=== PATIENT | female | born 1950 | race Two or more races ===

== ENCOUNTER 2024-09-17 16:20 | Inpatient (IN) | payer BC, OTHER ==
[~2024-09-17] VITALS: Ht 185.4 cm; Wt 67.9 kg
--- NOTE | 2024-09-17 17:05 | ED.PDOC ---
History of Present Illness(SKN HPI Comments 74y F who presents to the ED for chief complaint of insect bite. Pt states she had bug bite 1 week prior and states the site around the bug bite has been infected and continues to get more swollen with surrounding erythema despite taking outpatient antibiotics. Pt states she has been taking bactrim but states it has not helped and came for further evaluation. Pt in the ED, has noted swelling and edema to the R posterior arm. Pt states she has been having pain radiating to the neck but otherwise denies any associated radiation of the pain. Pt otherwise has stable vitals in the ED. Chief Complaint: Insect Bite Time Seen by MD: 17:01 Primary Care Provider: ? History of Present Illness: Nurses Notes, Medications, Allergies (see list) Allergies: Coded Allergies: Prochlorperazine (Verified Allergy, Unknown, 09/17/24) Information Source: Patient Mode of Arrival: Ambulatory Brought in by: self Severity: Moderate Timing: Days Duration: Since onset Prehospital treatment: None Location: Arm Mechanism: Insect Developed: Generalized erythema, Rash Occurence: Outdoors Object: None Condition of Object: Contaminated Retained Foreign Body: No Wound Type: None Immunization Status of Animal: NA History of: None Associated Signs and Symptoms: Redness, Swelling Past Medical History PAST MEDICAL HISTORY: Denies Surgical History (Other): back surgery x5 [employer] History: Denies all [employer] Hx Family History Family History: Unknown Social History Smoker: Non-Smoker Alcohol: Occasionally Drugs: Denies Drug Use Lives In: Home Constitutional: denies: chills, diaphoresis, fatigue, fever, malaise, sweats, weakness, others EENTM: denies: blurred vision, double vision, ear bleeding, ear discharge, ear drainage, ear pain, ear ringing, eye pain, eye redness, hearing loss, mouth pain, mouth swelling, nasal discharge, nose bleeding, nose congestion, nose pain, photophobia, tearing, throat pain, throat swelling, voice changes, others Respiratory: denies: cough, hemoptysis, orthopnea, SOB at rest, shortness of breath, SOB with excertion, stridor, wheezing, others Cardiovascular: denies: chest pain, dizzy spells, diaphoresis, Dyspnea on exertion, edema, irregular heart beat, left arm pain, lightheadedness, palpitations, PND, syncope, others Gastrointestinal: denies: abdomen distended, abdominal pain, blood streaked bowels, constipated, diarrhea, dysphagia, difficulty swallowing, hematemesis, melena, nausea, poor appetite, poor fluid intake, rectal bleeding, rectal pain, vomiting, others Genitourinary: denies: abnormal vagina bleeding, burning, dyspareunia, dysuria, flank pain, frequency, hematuria, incontinence, pain, , vagina discharg e, urgency, others Neurological: denies: dizziness, fainting, headache, left sided numbness, left sided weakness, numbness, paresthesia, pre-existing deficit, right sided numbness, right sided weakness, seizure, speech problems, tingling, tremors, weakness, others Musculoskeletal: denies: back pain, gout, joint pain, joint swelling, muscle pain, muscle stiffness, neck pain, others Integumetry: reports: change in color (R posterior arm); denies: bruises, change in hair/nails, dryness, laceration, lesions, lumps, rash, wounds, others Allergic/Immunocompromised: denies: Difficulty Healing, Frequent Infections, Hives, Itching, others Hematologic/Lymphatic: denies: anemia, blood clots, easy bleeding, easy bruising, swollen glands, others Endocrine: denies: excessive hunger, excessive sweating, excessive thirst, excessive urination, flushing, intolerance to cold, intolerance to heat, unexplained weight gain, unexplained weight loss, others Psychiatric: denies: anxiety, bipolar disorder, depression, hopeless, panic disorder, schizophrenia, sleepless, suicidal, others All Other Systems: Reviewed and Negative Physical Exam General Appearance: Moderate Distress HEENT: Normal ENT Inspection, Pharynx Normal, TMs Normal Neck: Full Range of Motion, Non-Tender, Normal, Normal Inspection Respiratory: Chest Non-Tender, Lungs Clear, No Accessory Muscle Use, No Re spiratory Distress, Normal Breath Sounds Cardiovascular: No Edema, No JVD, No Murmur, No Gallop, Normal Peripheral Pulses, Regular Rate/Rhythm Breast Exam: Deferred Gastrointestinal: No Organomegaly, Non Tender, No Pulsatile Mass, Normal Bowel Sounds, Soft Genitalia: Deferred Pelvic: Deferred Rectal: Deferred Extremities: No calf tenderness, Normal capillary refill, No pedal edema Musculoskeletal : Apperance: Normal Neurologic: Alert, member service representative II-XII nml as Tested, No Motor Deficits, Normal Affect, Normal Mood, No Sensory Deficits Cerebellar Function: Normal Reflexes: Normal Skin: Dry, Normal Color, Rash (Redness to the right arm with mild drainage), Warm Lymphatic: No Adenopathy Was a procedure done? Was a procedure done?: No Differential Diagnosis (INTG) Differential Diagnosis: Insect Envenomation, Puncture Wound Abscess: Abscess, Bacteremia, Cellulitis X-Ray, Labs, Meds, VS Vital Signs Date Time Temp Pulse Resp B/P (MAP) Pulse Ox O2 Delivery O2 Flow Rate FiO2 09/17/24 17:13 99.4 79 18 135/44 (74) 99 99.4 09/17/24 16:36 99.4 79 18 135/44 (74) 95 Lab Test 09/17/24 17:05 Range/Units White Blood Count 6.2 4.4-10.8 10^3/uL Red Blood Count 4.28 4.0-5.20 10^6/uL Hemoglobin 12.9 12.2-16.2 g/dL Hematocrit 38.1 36.0-46.0 % Mean Corpuscular Volume 89.0 80.0-100.0 fL Mean Corpuscular Hemoglobin 30.1 28.0-32.0 pg Mean Corpuscular Hemoglobin Concent 33.8 32.0-36.0 g/dL Red Cell Distribution Width 13.9 11.8-14.3 % Platelet Count 276 140-450 10^3/uL Mean Platelet Volume 9.8 6.9-10.8 fL Neutrophils (%) (Auto) 64.4 37.0-80.0 % Lymphocytes (%) (Auto) 27.0 10.0-50.0 % Monocytes (%) (Auto) 7.0 0.0-12.0 % Eosinophils (%) (Auto) 0.9 0.0-7.0 % Basophils (%) (Auto) 0.7 0.0-2.0 % Neutrophils # (Auto) 4.0 1.6-8.6 10 ^3/uL Lymphocytes # (Auto) 1.7 0.4-5.4 10 ^3/uL Monocytes # (Auto) 0.4 0-1.3 10 ^3/uL Eosinophils # (Auto) 0.1 0-0.8 10 ^3/uL Basophils # (Auto) 0 0-0.2 10 ^3/uL Nucleated Red Blood Cells 0.1 % Sodium Level 139 136-145 mmol/L Potassium Level 4.2 3.5-5.1 mmol/L Chloride Level 104 98-107 mmol/L Carbon Dioxide Level 25 20-31 mmol/L Anion Gap 10 5-15 Blood Urea Nitrogen 16 9-23 mg/dL Creatinine 1.29 H 0.550-1.02 mg/dL Glomerular Filtration Rate Calc 44 >90 mL/min BUN/Creatinine Ratio 12.4 10.0-20.0 Serum Glucose 158 H 74-106 mg/dL Calcium Level 9.9 8.7-10.4 mg/dL Current Medications Medications (Trade) Dose Ordered Sig/Franky Route Start Time Stop Time Status Last Admin Sodium Chloride 500 ml @ 500 mls/hr Q1H ONCE IV 09/17/24 17:00 09/17/24 17:59 DC 09/17/24 17:15 Clindamycin Phosphate 50 ml @ 50 mls/hr ONCE ONCE IV 09/17/24 17:00 09/17/24 17:59 DC 09/17/24 17:15 The patient was given normal saline as a 500 cc bolus The patient was started on clindamycin IV piggyback The patient's CBC is within normal limits The chemistry panel is within normal limits The patient was being admitted with a diagnosis of right arm cellulitis The patient failed oral antibiotics so needs to be admitted at this time. Time of 1ST Reevaluation: 17:35 Reevaluation 1ST: Unchanged Patient Education/Counseling: Diagnosis, Treatment Family Education/Counseling: No Family Present Departure 1 Departure Time of Disposition: 18:58 Impression: Primary Impression: Cellulitis of right leg Disposition: ADMITTED INPATIENT Admit to: Med Surg Condition: Fair Critical Care Note Critical Care Time?: No Stability Stability form required: No Heart Score Heart Score: Heart Score Response (Comments) Value History N/A 0 EKG N/A 0 Age N/A 0 Risk Factors N/A 0 Troponin N/A 0 Total 0 I personally scribed for LUIS FERNANDO HINTON MD ([email or web address]) on 09/17/24 at 17:04. Electronically submitted by Halley Valdes ([email or web address]). LUIS FERNANDO HINTON MD Sep 17, 2024 17:04
[2024-09-17] MEDS: SODIUM CHLORIDE 0.9% 500 ML IV ONE (17:15)
[2024-09-17] MEDS: CLINDAMYCIN 600MG IV 50 ML IV ONE (17:15)
[2024-09-17 17:25] LABS: Basophils # (auto) 0 10 ^3/uL (0-0.2); Basophils % (auto) 0.7 % (0.0-2.0); Eosinophils # (auto) 0.1 10 ^3/uL (0-0.8); Eosinophils % (auto) 0.9 % (0.0-7.0); Hematocrit 38.1 % (36.0-46.0); Hemoglobin 12.9 g/dL (12.2-16.2); Lymphocytes # (auto) 1.7 10 ^3/uL (0.4-5.4); Mean Corpuscular Hemoglobin 30.1 pg (28.0-32.0); Mean Corpuscular Hgb Conc. 33.8 g/dL (32.0-36.0); Monocytes # (auto) 0.4 10 ^3/uL (0-1.3); Neutrophils % (auto) 64.4 % (37.0-80.0); Nucleated Red Blood Cells % 0.1 %; Platelet Count (auto) 276 10^3/uL (140-450); Red Blood Cells 4.28 10^6/uL (4.0-5.20); Red Cell Distribution Width 13.9 % (11.8-14.3); White Blood Cell 6.2 10^3/uL (4.4-10.8)
[2024-09-17 17:33] LABS: Chloride 104 mmol/L (98-107); Potassium 4.2 mmol/L (3.5-5.1); Sodium 139 mmol/L (136-145)
[2024-09-17 17:34] LABS: Anion Gap 10 (5-15); Carbon Dioxide 25 mmol/L (20-31)
[2024-09-17 17:35] LABS: Calcium 9.9 mg/dL (8.7-10.4)
[2024-09-17 17:39] LABS: BUN/Creatinine Ratio 12.4 (10.0-20.0); Blood Urea Nitrogen 16 mg/dL (9-23); Glucose 158 mg/dL (74-106)
[2024-09-17] MEDS ORDERED: ACETAMINOPHEN 325 MG TAB PO PRN (21:30)
[2024-09-17] MEDS ORDERED: NITROGLYCERIN 0.4 MG SL TAB SL PRN (21:30)
[2024-09-17] MEDS ORDERED: MORPHINE SULFATE INJ 2 MG/ml SYRG IV PRN (21:30)
--- NOTE | 2024-09-17 21:40 | DVHHPRES ---
History of Present Illness Resident Creating Document: [address] RESIDENT History of Present Illness Ms. Tang, a 74-year-old female presented to the ED with a week-old insect bite, fever and chills that had become increasingly swollen and erythematous despite taking Bactrim. She was on a camping trip while she was sleeping , she seemed to have an insect bite of unknown origin. She reported swelling and edema in her right posterior arm, with pain radiating to her neck. She is also concerned with numbness occasionally felt distal to the lesion. Her vitals were stable, and lab results were normal. She was diagnosed with right arm cellulitis, given a saline bolus, and started on IV clindamycin after failing oral antibiotics. She has similar wound infection few years back with a brown recluse spider in the left waist that had a prolonged surgical wound debridement and 3 weeks of IV antibiotics. Patient denies history of diabetes, recent travel, signs and symptoms of other systemic symptoms. Cardiovascular: HTN Psych: Other (Insomnia) Musculoskeletal: Chronic low back pain, Osteoarthritis Dermatology: Other (Previous skin and soft tissue infection secondary to insect bite) Past Surgical History: Hysterectomy, Other (Lower back multiple orthopedic surgery for low back pain secondary to DDD) Family History: None Family History Noncontributory Smoke: Quit (History of 30+ years of 2 pack daily= 60 pack-year history. Patient quit smoking approximately 7 years back. Reported up-to-date with cancer screening,) ALCOHOL: occassional (Social) Drugs: None Lives: with Family Domestic Violence: Neg Review of Systems Constitutional: Yes: Fever, Chills, Malaise Eyes: No: Pain, Vision change, Conjunctivae inflammation, Eyelid inflammation, Other, Redness ENT: No: Ear pain, Ear discharge, Nose pain, Nose discharge, Nose congestion, Mouth pain, Mouth swelling, Throat pain, Throat swelling, Other Respiratory: No: Cough, Dry, Shortness of breath, SOB with excertion, Wheezing, Hemoptysis, Pleuritic Pain, Sputum, Wheezing, Other Cardiovascular: No: Chest Pain, Palpitations, Orthopnea, Paroxysmal Noc. Dyspnea, Edema, Lt Headedness, Other Gastrointestinal: No: Nausea, Vomiting, Abdominal Pain, Diarrhea, Constipation, Melena, Hematochezia, Other Genitourinary: No Dysuria, No Frequency, No Incontinence, No Hematuria, No Retention, No Other Musculoskeletal: other (Numbness weakness, occasional intermittent paresthesias in the right upper extremity), shoulder pain, arm pain Skin: Rash, Lesions (Worsening skin redness and swelling) Neurological: No: Weakness, Numbness, Incoordination, Change in speech, Confusion, Seizures, Other Allergies: Coded Allergies: Prochlorperazine (Verified Allergy, Unknown, 09/17/24) Medications Current Medications Medications Dose Ordered Sig/Franky Route Start Time Stop Time Status Last Admin Dose Admin Acetaminophen/ Hydrocodone Bitart 1 tab Q4HP PRN PO 09/17/24 21:30 Ondansetron HCl 4 mg Q4HP PRN IV 09/17/24 21:30 Docusate Sodium 100 mg BIDPRN PRN PO 09/17/24 21:30 Acetaminophen 650 mg Q6HP PRN PO 09/17/24 21:30 Morphine Sulfate 2 mg Q4HPRN PRN IV 09/17/24 21:30 Nitroglycerin 0.4 mg Q5MINP PRN SL 09/17/24 21:30 Morphine Sulfate 2 mg Q30M PRN IV 09/17/24 21:30 Exam Vital Signs Vital Signs Date Time Temp Pulse Resp B/P (MAP) Pulse Ox O2 Delivery O2 Flow Rate FiO2 09/17/24 17:13 99.4 79 18 135/44 (74) 99 99.4 Exam Physical examination conducted with the presence of female cast shell grinder at bedside. Right upper arm noted swelling with local tenderness around and on the lesion. No active discharge noted. Detailed review of the distal part of the arm shows sustained perfusion, neurological function and no signs of compartment syndrome. Although possible to have local nerve sheath compression/him involvement. General Appearance: Alert, Oriented X3, Cooperative, mild distress HEENT: Atraumatic, PERRLA, EOMI, Mucous membr. moist/pink Respiratory: Clear to auscultation, Normal air movement Cardiovascular: Regular rate, Normal S1, Normal S2, No murmurs Abdominal: Normal bowel sounds, Soft, No tenderness, No hepatospenomegaly, No masses, Other (BS positive) Extremities: Other (Right upper extremity midway between acromio clavicular process and olecranon process towards the extensor compartment of arm laterally approximately raised, granulated, red, angry swollen oval masslike projection 2.5fwwky2 inch with fluctuation underneath pointing towards likely pus colle ction) Neuro: Normal gait, Normal speech, Strength at 5/5 X4 ext, Normal tone, Cranial nerves 3-12 NL Psych/Mental Status: Mental status NL, Mood NL Labs/Xrays Labs Test 09/17/24 17:05 Range/Units White Blood Count 6.2 4.4-10.8 10^3/uL Red Blood Count 4.28 4.0-5.20 10^6/uL Hemoglobin 12.9 12.2-16.2 g/dL Hematocrit 38.1 36.0-46.0 % Mean Corpuscular Volume 89.0 80.0-100.0 fL Mean Corpuscular Hemoglobin 30.1 28.0-32.0 pg Mean Corpuscular Hemoglobin Concent 33.8 32.0-36.0 g/dL Red Cell Distribution Width 13.9 11.8-14.3 % Platelet Count 276 140-450 10^3/uL Mean Platelet Volume 9.8 6.9-10.8 fL Neutrophils (%) (Auto) 64.4 37.0-80.0 % Lymphocytes (%) (Auto) 27.0 10.0-50.0 % Monocytes (%) (Auto) 7.0 0.0-12.0 % Eosinophils (%) (Auto) 0.9 0.0-7.0 % Basophils (%) (Auto) 0.7 0.0-2.0 % Neutrophils # (Auto) 4.0 1.6-8.6 10 ^3/uL Lymphocytes # (Auto) 1.7 0.4-5.4 10 ^3/uL Monocytes # (Auto) 0.4 0-1.3 10 ^3/uL Eosinophils # (Auto) 0.1 0-0.8 10 ^3/uL Basophils # (Auto) 0 0-0.2 10 ^3/uL Nucleated Red Blood Cells 0.1 % Sodium Level 139 136-145 mmol/L Potassium Level 4.2 3.5-5.1 mmol/L Chloride Level 104 98-107 mmol/L Carbon Dioxide Level 25 20-31 mmol/L Anion Gap 10 5-15 Blood Urea Nitrogen 16 9-23 mg/dL Creatinine 1.29 H 0.550-1.02 mg/dL Glomerular Filtration Rate Calc 44 >90 mL/min BUN/Creatinine Ratio 12.4 10.0-20.0 Serum Glucose 158 H 74-106 mg/dL Calcium Level 9.9 8.7-10.4 mg/dL Assessment/Plan Assessment/Plan Assessment: A 74-year-old female, presented to the ED with a week-old insect bite that had become swollen and erythematous despite taking Bactrim, and was diagnosed with right arm cellulitis, receiving IV clindamycin after failing oral antibiotics. Admitted in [facility], started on IV antibiotics with further workup and planning of surgical management. Plan: #1 Insect bite: approximately a week back, insect not visualized. Progressive granulation tissue, local pain, numbness, tingling, referred pain to the proximal shoulder blade and distal arm, forearm and fingers. Noted fever 101 at home with recurrent chills. Worsening of infection despite having oral Bactrim. #2 Skin and soft tissue infection with likely underlying abscess: Continue IV antibiotics, patient kept NPO, tomorrow we will do surgical consult likely will benefit from drainage. Pain controlled with as needed multimodal pain management. clinically ruled out and Discussed red flag/ compartment syndrome with the patient. Wound culture, blood culture pending. rule out DVT with ultrasound and localize collection. #3 Essential hypertension: At home patient takes metformin succinate 25 mg daily. #4 Past history of brown recluse spider bite: few years back needing 3 weeks of prolonged hospitalization, recurrent wound debridement/drainage with prolonged IV antibiotics in the right waist area. treatment details limited as the patient obtained the care [place]. #5 Insomnia: Bedtime Seroquel 50 mg daily. Previously she has also tried trazodone 50 mg, zolpidem 5 mg for insomnia. #6 Vitamin-D deficiency: On vitamin D supplements continue in-hospital. Check vitamin-D levels. #7 MARY due to VMN: No known baseline, creatinine mildly elevated presented with 1.29, 1.25 with fluid challenge. Avoid nephrotoxic check I&O and close follow up. #8 Possible CKD: No known baseline, daily CBC to follow. #9 Known allergy to Prochlorperazine: With generalized erythema and rash. Avoid the medication. #10 prolonged history of previous 60 pack-year smoking: Patient denies any unintentional weight loss, she is updated with colonoscopy and low-dose CT with her PCP. #11 History of degenerative joint /disc disease: status post lower back surgery: previous history of back pain with prolonged history of fentanyl controlled pain. Status post 5x surgical management, pain well-controlled. Denies any present stiffness pain or neurological symptoms. #12 Osteoarthritis: overall patient is mobile, no severe joint tenderness noted, no recent fall. PUD prophylaxis: not needed, no history of GERD DVT prophylaxis: Ambulatory/ encouraged brisk movement. Barriers to discharge: Medical diagnosis and management in progress. Patient lives with self family. Independent for ADL. PCP: Dr Delfin Davila Specialist: As per patient yet to establish care with results technician for stress test and blood pressure control. Case discussed with Dr. Izquierdo. Code Status: Full Code. Discussion needed total 25 minutes bedside. Plan discussed with: Patient, Other (Primary team, RN.) My Orders Orders - [facility] [address] RESIDENT Procedure Category Date Status Time Admit ADMIT 09/17/24 Transmitted 21:27 Code Status CODE 09/17/24 Transmitted 21:27 Oxygen Per Hour RT 09/17/24 Transmitted 21:27 Hydrocodone-Acet PHA 09/17/24 In Process 5/325mg Tab ([place] 21:30 Ondansetron Hcl PHA 09/17/24 In Process (Zofran) 21:30 Docusate Sodium PHA 09/17/24 In Process Capsule (Colace 21:30 Complete Blood Count LAB 09/18/24 Verified 04:00 Comprehensive LAB 09/18/24 Verified Metabolic Panel 04:00 Npo (Nothing By DIET 09/18/24 Transmitted Mouth) Diet Breakfast Condition: Fair NATHALIE 09/17/24 In Process 21:27 Acetaminophen Tablet PHA 09/17/24 In Process (Tylenol Tablet) 21:30 Bedrest With Bathroom NATHALIE 09/17/24 In Process Privileg 21:27 Morphine Sulfate PHA 09/17/24 In Process Injection 21:30 Nitroglycerin PHA 09/17/24 In Process Sublingual (Ntrostat 21:30 Morphine Sulfate PHA 09/17/24 In Process Injection 21:30 Oxygen By Nasal RT 09/17/24 Transmitted Cannula 21:27 Stat Ekg For Chest NATHALIE 09/17/24 In Process Pain 21:27 Notify Md Of Changes NATHALIE 09/17/24 In Process From Base 21:27 Emergency Dysrhythmia NATHLAIE 09/17/24 In Process Protocol 21:27 Rhythm Strips Once NATHALIE 09/17/24 In Process Every Shift 21:27 Comprehensive LAB 09/17/24 Logged Metabolic Panel 21:30 Thyroid Stimulating LAB 09/17/24 Logged Hormone 21:30 Blood Culture GUILLERMO 09/17/24 Logged 21:30 Bilat Lower Dvt US 09/17/24 Logged 21:31 Urinalysis LAB 09/17/24 Logged 21:31 Lactated Ringer's PHA 09/17/24 In Process 21:45 D-Dimer LAB 09/17/24 Logged 21:37 Date of Service: Sep 17, 2024 Billing Provider: ERICK IZQUIERDO MD Common Visit Codes: [id number] INP/OBS CARE (HIGH) [address] RESIDENT Sep 17, 2024 21:40 ERICK IZQUIERDO MD Sep 18, 2024 17:54
[2024-09-17 22:19] LABS: Alanine Aminotransferase 10 U/L (7-40); Alkaline Phosphatase 96 U/L (46-116); Anion Gap 9 (5-15); Aspartate Aminotransferase 11 U/L (13-40); BUN/Creatinine Ratio 13.6 (10.0-20.0); Blood Urea Nitrogen 17 mg/dL (9-23); Calcium 9.6 mg/dL (8.7-10.4); Carbon Dioxide 25 mmol/L (20-31); Chloride 105 mmol/L (98-107); Glucose 91 mg/dL (74-106); Potassium 4.4 mmol/L (3.5-5.1); Sodium 139 mmol/L (136-145)
[2024-09-17 22:20] LABS: Albumin 4.3 g/dL (3.2-4.8); Bilirubin, Total 0.4 mg/dL (0.2-1.0); Total Protein 6.7 g/dL (5.7-8.2)
[2024-09-17] MEDS: LACTATED RINGER'S 1,000 ML IV ONE (22:34)
[2024-09-17] MEDS ORDERED: VANCOMYCIN PER PHARMACY 0 MG IV SCH (23:15)
[2024-09-18 00:05] LABS: Erythrocyte Sedimentation Rate 16 mm/hr (0-20)
--- NOTE | 2024-09-18 04:13 | DVH ---
Right lower extremity venous duplex Clinical History: INFECTION Comparison: None Technique: Duplex Doppler evaluation of the deep venous system of the right upper extremity from the common femo ral vein to the popliteal vein including color Doppler and spectral/pulsed waveform analysis was perf ormed. Findings: The internal jugular, subclavian, axillary, cephalic, brachial, basilic, radial and ulnar veins demon strate normal compressibility and patency. Incidental note of 2.2 x 1.6 x 1.4 cm complex fluid collection with skin edema at area of erythema an d pain. Impression: 1. No evidence of right upper extremity DVT 2. 2.2 cm complex fluid collection with edema and erythema along the posterior arm may represent cell ulitis with focal abscess. Correlation with clinical exam is recommended. HS:Y
[2024-09-18 04:45] VITALS: PULSE 60; RESP 16; O2SAT 99
[2024-09-18] MEDS: HYDROcodone-ACET 5/325MG TAB PO PRN (04:50)
[2024-09-18] MEDS: VANCOMYCIN 1GM/250ML KIT 200 ML IV ONE (04:50)
[2024-09-18 06:14] LABS: Chloride 105 mmol/L (98-107); Potassium 4.2 mmol/L (3.5-5.1); Sodium 139 mmol/L (136-145)
[2024-09-18 06:15] LABS: Anion Gap 9 (5-15); Calcium 9.9 mg/dL (8.7-10.4); Carbon Dioxide 25 mmol/L (20-31)
[2024-09-18 06:20] LABS: BUN/Creatinine Ratio 12.8 (10.0-20.0); Blood Urea Nitrogen 15 mg/dL (9-23); Glucose 93 mg/dL (74-106)
[2024-09-18 06:26] LABS: Basophils # (auto) 0.1 10 ^3/uL (0-0.2); Basophils % (auto) 0.9 % (0.0-2.0); Eosinophils # (auto) 0.1 10 ^3/uL (0-0.8); Eosinophils % (auto) 1.4 % (0.0-7.0); Hematocrit 36.9 % (36.0-46.0); Hemoglobin 12.8 g/dL (12.2-16.2); Lymphocytes # (auto) 1.3 10 ^3/uL (0.4-5.4); Lymphocytes % (auto) 21.9 % (10.0-50.0); Mean Corpuscular Hemoglobin 30.6 pg (28.0-32.0); Mean Corpuscular Hgb Conc. 34.8 g/dL (32.0-36.0); Monocytes # (auto) 0.4 10 ^3/uL (0-1.3); Neutrophils # (auto) 4.2 10 ^3/uL (1.6-8.6); Neutrophils % (auto) 68.8 % (37.0-80.0); Nucleated Red Blood Cells % 0.1 %; Platelet Count (auto) 273 10^3/uL (140-450); Red Blood Cells 4.19 10^6/uL (4.0-5.20); Red Cell Distribution Width 13.4 % (11.8-14.3); White Blood Cell 6.1 10^3/uL (4.4-10.8)
[2024-09-18 07:19] VITALS: PULSE 58; RESP 11; O2SAT 96
[2024-09-18 07:46] LABS: Urine Bacteria None Seen /hpf (None Seen); Urine WBC None Seen /hpf (0 - 5)
[2024-09-18 08:07] LABS: Amphetamine Screen, Urine Neg (NEGATIVE); Barbiturate Scree,Urine Neg (NEGATIVE); Benzodiazephine Screen, Urine Neg (NEGATIVE); Cannabinoid Screen, Urine Pos (NEGATIVE); Cocaine Screen, Urine Neg (NEGATIVE); Opiate Scree,Urine Neg (NEGATIVE); Phencyclidine Screen, Urine Neg (NEGATIVE)
[2024-09-18 08:09] LABS: Urine Blood Negative /uL (Negative); Urine Clarity Clear (Clear); Urine Color Light-Yellow (Yellow); Urine Protein, UAD Negative (Negative); Urine Specific Gravity 1.016 (1.001-1.035); Urine Urobilinogen Normal (Negative)
[2024-09-18] MEDS: ONDANSETRON HCL 4 MG/2 ML VIAL IV PRN (08:38)
[2024-09-18] MEDS: ERGOCALCIFEROL 50,000 UNIT(1.25MG) CAP PO SCH (08:38)
[2024-09-18] MEDS: MORPHINE SULFATE INJ 2 MG/ml SYRG IV PRN (08:39)
[2024-09-18 09:44] VITALS: PULSE 63; RESP 20; O2SAT 95
--- NOTE | 2024-09-18 10:41 | DVHINCON2 ---
Date of service: Sep 18, 2024 Reason for Consultation right arm abscess History of Present Illness History Source: Patient, RN Notes, MD Notes Exam Limitations: No limitations HPI 74 year old female presented to the ER for evaluation of an insect bite a week ago. She was camping and while asleep she woke up with a bite to her right arm. She states the area has become become worse in pain and size. She was treated with antibiotics and has had no improvement. Past Medical History Cardiac: HTN Pulmonary: Asthma Central Nervous System: Nervous system GI: Constipation Hemotology/Oncology: Anemia NOS Hepatobiliary: Cirrhosis Musculoskeletal: Chronic low back pain, Osteoarthritis Rheumotologic: Fibromyalgia Infectious Disease: AIDS ENT: Sinusitis Renal/: Acute renal failure Endocrine: Vit D deficiency Dermatology: Eczema Past Surgical History: Hysterctomy Smoker: No Hx (Negative) Drugs: None Review of Systems Constitutional: No symptom reported Ears, Nose, & Throat: No symptom reported Eyes: No symptom reported Pulmonary/Respiratory: No symptom reported Cardiovascular: No symptom reported Gastrointestinal: No symptom reported Genitourinary: No symptom reported Musculoskeletal: No symptom reported Skin: Other (right arm abscess) Psychiatric: No symptom reported Endocrine: No symptom reported Hemotologic/Lymphatic: No symptom reported H&P Exam Vital Signs Vital Signs Date Time Temp Pulse Resp B/P (MAP) Pulse Ox O2 Delivery O2 Flow Rate FiO2 09/18/24 09:44 63 20 95 Room Air* 0 21 09/18/24 09:40 98.2 124/53 (76) 98.2 General Appeara: Well developed, Well nourished, Normal Appearance Neuro/Mental St: Alert, Oriented, Depressed affect Eye contact/ Speech: Cooperative, Good eye contact, Normal speech Thoughts/Psych: Normal thought pattern Skin Exam: Other (right arm abscess) Wounds right arm abscess Labs/Xrays Labs Test 09/18/24 05:40 09/18/24 05:22 09/17/24 23:43 09/17/24 21:43 Range/Units Urine Color Light-yellow Yellow Urine Clarity Clear Clear Urine pH 6.0 5.0-9.0 Urine Specific Stuart 1.016 1.001-1.035 Urine Protein Negative Negative Urine Ketones 1+ H Negative Urine Blood Negative Negative /uL Urine Nitrite Negative Negative Urine Bilirubin Negative Negative Urine Urobilinogen Normal Negative mg/dL Urine Leukocyte Esterase Negative Negative /uL Urine RBC 1 0 - 4 /hpf Urine WBC None seen 0 - 5 /hpf Urine Squamous Epithelial Cells None seen <5 /hpf Urine Bacteria None seen None Seen /hpf Urine Glucose Normal Normal mg/dL Urine Opiates Screen Neg NEGATIVE Urine Fentanyl Screen Neg NEGATIVE Urine Barbiturates Screen Neg NEGATIVE Urine Phencyclidine Screen Neg NEGATIVE Urine Amphetamines Screen Neg NEGATIVE Urine Benzodiazepines Screen Neg NEGATIVE Urine Cocaine Screen Neg NEGATIVE Urine Cannabinoids Screen Pos NEGATIVE White Blood Count 6.1 4.4-10.8 10^3/uL Red Blood Count 4.19 4.0-5.20 10^6/uL Hemoglobin 12.8 12.2-16.2 g/dL Hematocrit 36.9 36.0-46.0 % Mean Corpuscular Volume 88.0 80.0-100.0 fL Mean Corpuscular Hemoglobin 30.6 28.0-32.0 pg Mean Corpuscular Hemoglobin Concent 34.8 32.0-36.0 g/dL Red Cell Distribution Width 13.4 11.8-14.3 % Platelet Count 273 140-450 10^3/uL Mean Platelet Volume 9.9 6.9-10.8 fL Neutrophils (%) (Auto) 68.8 37.0-80.0 % Lymphocytes (%) (Auto) 21.9 10.0-50.0 % Monocytes (%) (Auto) 7.0 0.0-12.0 % Eosinophils (%) (Auto) 1.4 0.0-7.0 % Basophils (%) (Auto) 0.9 0.0-2.0 % Neutrophils # (Auto) 4.2 1.6-8.6 10 ^3/uL Lymphocytes # (Auto) 1.3 0.4-5.4 10 ^3/uL Monocytes # (Auto) 0.4 0-1.3 10 ^3/uL Eosinophils # (Auto) 0.1 0-0.8 10 ^3/uL Basophils # (Auto) 0.1 0-0.2 10 ^3/uL Nucleated Red Blood Cells 0.1 % Sodium Level 139 136-145 mmol/L Potassium Level 4.2 3.5-5.1 mmol/L Chloride Level 105 98-107 mmol/L Carbon Dioxide Level 25 20-31 mmol/L Anion Gap 9 5-15 Blood Urea Nitrogen 15 9-23 mg/dL Creatinine 1.17 H 0.550-1.02 mg/dL Glomerular Filtration Rate Calc 50 >90 mL/min BUN/Creatinine Ratio 12.8 10.0-20.0 Serum Glucose 93 74-106 mg/dL Calcium Level 9.9 8.7-10.4 mg/dL Creatine Kinase 85 34-145 U/L Lactic Acid Level 0.9 0.4-2.0 mmol/L Erythrocyte Sedimentation Rate 16 0-20 mm/hr D-Dimer, Quantitative 0.47 0.0-0.49 mg/L FEU Hemoglobin A1c 5.2 <5.7 % A1C Total Bilirubin 0.4 0.2-1.0 mg/dL Aspartate Amino Transferase (AST) 11 L 13-40 U/L Alanine Aminotransferase (ALT) 10 7-40 U/L Alkaline Phosphatase 96 46-116 U/L C-Reactive Protein High Sensitivity 0.91 <1.0 mg/dL Total Protein 6.7 5.7-8.2 g/dL Albumin 4.3 3.2-4.8 g/dL Thyroid Stimulating Hormone (TSH) 1.88 0.55-4.78 uIU/mL Assessment/Plan Plan right arm abscess , tender, incision and drainage tomorrow Plan discussed with: Patient, Other Visit Coding Surgery Date of Service if different f: Sep 18, 2024 Billing Provider: DARYN SINGH MD Surgery Visit Codes: 05184 - INP CONSULT <55 MIN DANILO COLIN NP Sep 18, 2024 10:40
--- NOTE | 2024-09-18 11:22 | DVHSR ---
APPROVED REPORT EXAM: Two-dimensional and M-mode echocardiogram with Doppler and color Doppler. Blood Pressure: 124/52 mmHg INDICATION Pre-Op pre surgical risk assessment known for HTN RISK FACTORS Height: 63, Weight: 133 DIMENSIONS LVDd4.1 (3.8-5.7cm)LA (2D)3.7 (1.9-4.0cm)Aortic Root2.8 (2.0-3.7cm) LVDs2.7 (2.5-4.0cm)LA (MM) (1.9-4.0cm)Aortic Cusp Exc1.6 (1.5-2.0cm) EF (%) 65.0 (55-70%)Rt. Atrium (1.9-4.0cm)Asc. Aorta cm IVSd0.9 (0.7-1.1cm)RV (D) (1.8-2.4cm) PWd1.1 (0.7-1.1cm) Mitral Valve MitralMitral Stenosis E wave1.29m/sMV Mean GR.mmHg A wave1.24m/sMV Peak GR.mmHg E/A ratio1.02D MVAcm2 DECEL [id number] 1/2 [id number] IVRTmsDop MVA2.04cm2 Aortic Valve Aortic ValveAortic Stenosis V11.00m/Julia Mean GR.6mmHg V21.74m/Julia Peak GR.12mmHg Other Information Technically limited study due to body habitus and patient position. Conclusion Normal left ventricular size and dimension. Normal left ventricular systolic function estimated ejec tion fraction 55%. There is a grade 2 diastolic dysfunction. Normal right ventricular size and dimension. Normal right ventricular systolic function. Normal biatrial size and dimension. Normal aortic valve structure and function. Normal mitral valve structure and function. Normal tricuspid valve structure and function. The pulmonary valve is grossly normal. No pericardial effusion.
[2024-09-18] MEDS: LACTATED RINGER'S 1,000 ML IV SCH (11:27)
--- NOTE | 2024-09-18 14:58 | DVHPNRES ---
Progress Note Date Seen: Sep 18, 2024 Resident Creating Document: THAD NICOLE RESIDENT Has the PT tested + for MRSA If YES, has PT been informed?: No Medical Necessity Reason Pt with a Central, PICC or Fol: No Subjective Review of Systems A 74-year-old female, presented to the ED with a week-old insect bite that had become swollen and erythematous despite taking Bactrim, and was diagnosed with right arm cellulitis, receiving IV clindamycin after failing oral antibiotics. Admitted in medsurgery, started on IV antibiotics with further workup and planning of surgical management. Objective vital signs Vital Sign Date Time Temp Pulse Resp B/P (MAP) Pulse Ox O2 Delivery O2 Flow Rate FiO2 09/18/24 14:00 67 13 106/39 (61) 97 09/18/24 09:44 Room Air* 0 21 09/18/24 09:40 98.2 98.2 Total Intake and Output 09/17/24 09/17/24 09/18/24 15:00 23:00 07:00 Intake Total 200 ml Balance 200 ml medications Current Medications Medications Dose Ordered Sig/Franky Route Start Time Stop Time Status Last Admin Dose Admin Acetaminophen/ Hydrocodone Bitart 1 tab Q4HP PRN PO 09/17/24 21:30 09/18/24 12:51 1 TAB Ondansetron HCl 4 mg Q4HP PRN IV 09/17/24 21:30 09/18/24 08:38 4 MG Docusate Sodium 100 mg BIDPRN PRN PO 09/17/24 21:30 Acetaminophen 650 mg Q6HP PRN PO 09/17/24 21:30 Morphine Sulfate 2 mg Q4HPRN PRN IV 09/17/24 21:30 09/18/24 08:39 2 MG Nitroglycerin 0.4 mg Q5MINP PRN SL 09/17/24 21:30 Morphine Sulfate 2 mg Q30M PRN IV 09/17/24 21:30 Vancomycin HCl 0 ml @ 0 mls/hr UD IV 09/17/24 23:15 Quetiapine Fumarate 50 mg HS PO 09/18/24 22:00 Ergocalciferol 50,000 unit Q7D PO 09/18/24 10:00 09/18/24 08:38 50,000 UNIT Vancomycin HCl 100 ml @ 200 mls/hr Q12H IV 09/18/24 17:00 Lactated Ringer's 1,000 ml @ 100 mls/hr Q10H IV 09/18/24 11:00 09/18/24 11:27 100 MLS/HR Examination General Appearance: Alert, Oriented X3, Cooperative, mild distress HEENT: Atraumatic, PERRLA, EOMI, Mucous membr. moist/pink Respiratory: Clear to auscultation, Normal air movement Cardiovascular: Regular rate, Normal S1, Normal S2, No murmurs Abdominal: Normal bowel sounds, Soft, No tenderness, No hepatospenomegaly, No masses, Other (BS positive) Extremities: Right upper extremity midway between acromio clavicular process and olecranon process towards the extensor compartment of arm laterally approximately raised, granulated, red, angry swollen oval masslike projection 2.8uaobj1 inch with fluctuation underneath pointing towards likely pus collection Neuro: Normal gait, Normal speech, Strength at 5/5 X4 ext, Normal tone, Cranial nerves 3-12 NL Psych/Mental Status: Mental status NL, Mood NL laboratory and microbiology Laboratory Tests 09/18/24 05:22 Test 09/18/24 05:22 Range/Units Serum Glucose 93 74-106 mg/dL Problem List/Assessment/Plan Problem List/Assessment/Plan #Skin and soft tissue infection with likely underlying abscess due to Insect bite Approximately a week back, insect not visualized. Progressive granulation tissue, local pain, numbness, tingling, referred pain to the proximal shoulder blade and distal arm, forearm and fingers. Noted fever 101 at home with recurrent chills. Worsening of infection despite having oral Bactrim. Surgery will do drainage tomorrow Continue IV AB: vancomycin and clindamycin Wound culture, blood culture pending. #Essential hypertension: Metoprolol succinate 25 mg at home Hold on for now #Past history of brown recluse spider bite #MARY due to VMN: No known baseline, creatinine improving with fluids Case discussed with Dr. Cassidy Code Status: Full Code. Discussion needed total 25 minutes bedside. Plan discussed with: Patient, Other (rn) Date of Service: Sep 18, 2024 Billing Provider: PIEDAD CASSIDY MD Common Visit Codes: [id number] INP/OBS CARE(HIGH) THAD NICOLE RESIDENT Sep 18, 2024 14:58 PIEDAD CASSIDY MD Sep 20, 2024 08:09
[2024-09-18] MEDS: VANCOMYCIN 500mg/100mL 100 ML IV SCH (18:57)
[2024-09-18] MEDS ORDERED: CLINDAMYCIN 300MG IV 50 ML IV SCH (22:00)
[2024-09-18] MEDS: QUEtiapine FUMARATE 25 MG TAB PO SCH (22:18)
[2024-09-19] VITALS (8 sets, daily range): BP systolic 120–155; BP diastolic 49–68; PULSE 63–87; RESP 17–20; TEMP 97.9–98.4; O2SAT 95–100
[2024-09-19] MEDS ORDERED: CHOL20007 PO (04:31)
[2024-09-19] MEDS ORDERED: METO25TA93 PO (04:31)
[2024-09-19] MEDS ORDERED: QUET50TA PO (04:31)
--- NOTE | 2024-09-19 07:03 | DVHPNRES ---
Progress Note Date Seen: Sep 19, 2024 Resident Creating Document: THAD NICOLE RESIDENT Has the PT tested + for MRSA If YES, has PT been informed?: No Medical Necessity Reason Pt with a Central, PICC or Fol: No Subjective Review of Systems A 74-year-old female, presented to the ED with a week-old insect bite that had become swollen and erythematous despite taking Bactrim, and was diagnosed with right arm cellulitis, receiving IV clindamycin after failing oral antibiotics. Admitted in medsurgery, started on IV antibiotics with further workup and planning of surgical management. Objective vital signs Vital Sign Date Time Temp Pulse Resp B/P (MAP) Pulse Ox O2 Delivery O2 Flow Rate FiO2 09/19/24 05:00 97.9 64 18 132/51 (78) 97 97.9 09/19/24 03:37 Room Air* 0 21 Total Intake and Output 09/18/24 09/18/24 09/19/24 15:00 23:00 07:00 Intake Total 400 ml 700 ml 100 ml Balance 400 ml 700 ml 100 ml medications Current Medications Medications Dose Ordered Sig/Franky Route Start Time Stop Time Status Last Admin Dose Admin Acetaminophen/ Hydrocodone Bitart 1 tab Q4HP PRN PO 09/17/24 21:30 09/18/24 18:51 1 TAB Ondansetron HCl 4 mg Q4HP PRN IV 09/17/24 21:30 09/18/24 08:38 4 MG Docusate Sodium 100 mg BIDPRN PRN PO 09/17/24 21:30 Acetaminophen 650 mg Q6HP PRN PO 09/17/24 21:30 Morphine Sulfate 2 mg Q4HPRN PRN IV 09/17/24 21:30 09/19/24 02:15 2 MG Nitroglycerin 0.4 mg Q5MINP PRN SL 09/17/24 21:30 Morphine Sulfate 2 mg Q30M PRN IV 09/17/24 21:30 Vancomycin HCl 0 ml @ 0 mls/hr UD IV 09/17/24 23:15 Quetiapine Fumarate 50 mg HS PO 09/18/24 22:00 09/18/24 22:18 50 MG Ergocalciferol 50,000 unit Q7D PO 09/18/24 10:00 09/18/24 08:38 50,000 UNIT Vancomycin HCl 100 ml @ 200 mls/hr Q12H IV 09/18/24 17:00 09/19/24 05:25 200 MLS/HR Lactated Ringer's 1,000 ml @ 100 mls/hr Q10H IV 09/18/24 11:00 09/18/24 11:27 100 MLS/HR Examination General Appearance: Alert, Oriented X3, Cooperative, mild distress HEENT: Atraumatic, PERRLA, EOMI, Mucous membr. moist/pink Respiratory: Clear to auscultation, Normal air movement Cardiovascular: Regular rate, Normal S1, Normal S2, No murmurs Abdominal: Normal bowel sounds, Soft, No tenderness, No hepatospenomegaly, No masses, Other (BS positive) Extremities: Right upper extremity midway between acromio clavicular process and olecranon process towards the extensor compartment of arm laterally approximately raised, granulated, red, angry swollen oval masslike projection 2.6zclzu4 inch with fluctuation underneath pointing towards likely pus collection Neuro: Normal gait, Normal speech, Strength at 5/5 X4 ext, Normal tone, Cranial nerves 3-12 NL Psych/Mental Status: Mental status NL, Mood NL laboratory and microbiology Laboratory Tests 09/18/24 05:22 Test 09/18/24 05:22 Range/Units Serum Glucose 93 74-106 mg/dL Microbiology Date/Time Source Procedure Growth Status 09/17/24 21:43 Blood Blood Culture - Preliminary NO GROWTH AFTER 24 HOURS OF INCUBATION. Resulted Problem List/Assessment/Plan Problem List/Assessment/Plan #Skin and soft tissue infection with likely underlying abscess due to Insect bite #s/p drainage Approximately a week back, insect not visualized. Progressive granulation tissue, local pain, numbness, tingling, referred pain to the proximal shoulder blade and distal arm, forearm and fingers. Noted fever 101 at home with recurrent chills. Worsening of infection despite having oral Bactrim. Surgery will do drainage tomorrow Continue IV AB: vancomycin Wound culture pending blood culture prelim neg Drainage yesterday: An incision was made and purulent drainage drained from the wound the drainage was cultured and sent. The area was than infiltrated to exice necrotic tissue. The wound was than pulse lavaged and than packed with iodoform packing. Dressings were applied and patient was transferred to recovery. Sponge , needle and blade counts were correct. #Essential hypertension: Metoprolol succinate 25 mg at home Hold on for now #Past history of brown recluse spider bite #MARY due to VMN: No known baseline, creatinine improving with fluids Case discussed with Dr. Cassidy Code Status: Full Code. Discussion needed total 25 minutes bedside. Plan discussed with: Patient, Other (rn) Date of Service: Sep 20, 2024 Billing Provider: PIEDAD CASSIDY MD Common Visit Codes: [id number] INP/OBS CARE(HIGH) THAD NICOLE RESIDENT Sep 19, 2024 07:03 PIEDAD CASSIDY MD Sep 20, 2024 08:09
[2024-09-19 10:06] LABS: Basophils # (auto) 0 10 ^3/uL (0-0.2); Basophils % (auto) 0.6 % (0.0-2.0); Eosinophils # (auto) 0.1 10 ^3/uL (0-0.8); Eosinophils % (auto) 1.3 % (0.0-7.0); Hemoglobin 12.8 g/dL (12.2-16.2); Lymphocytes # (auto) 1.8 10 ^3/uL (0.4-5.4); Lymphocytes % (auto) 35.2 % (10.0-50.0); Mean Corpuscular Hemoglobin 30.3 pg (28.0-32.0); Mean Corpuscular Hgb Conc. 34.5 g/dL (32.0-36.0); Monocytes # (auto) 0.3 10 ^3/uL (0-1.3); Monocytes % (auto) 6.3 % (0.0-12.0); Neutrophils # (auto) 2.9 10 ^3/uL (1.6-8.6); Neutrophils % (auto) 56.6 % (37.0-80.0); Platelet Count (auto) 257 10^3/uL (140-450); Red Blood Cells 4.21 10^6/uL (4.0-5.20); Red Cell Distribution Width 13.7 % (11.8-14.3); White Blood Cell 5.1 10^3/uL (4.4-10.8)
[2024-09-19] MEDS ORDERED: fentaNYL CITRATE 100 MCG/2 ML VL ONE (12:33)
[2024-09-19] MEDS ORDERED: MIDAZOLAM HCL 2MG/2ML 2ml VIAL (1mg/ml) ONE (12:34)
[2024-09-19] MEDS ORDERED: PROPOFOL 10 MG/ML 20 ML IV ONE (13:05)
[2024-09-19] MEDS ORDERED: DexAMETHasone SOD PHOS 10MG/1ML VIAL INJ ONE (13:05)
--- NOTE | 2024-09-19 13:10 | DVHOP2 ---
Operative Report - 2 Report Details Date: 09/19/24 Preop Diagnosis: right upper arm abscess Postop Diagnosis: right upper arm abscess Surgeon: GALINA Ascencio Anesthesiologist: Dr. Cosme Anesthesia: Mac Consent: The patient was informed of the risks and benefits of the procedure. These include but are not limited to complications of anesthesia, postoperative infection, incomplete relief of symptoms, recurrence of symptoms, damage to blood vessels, nerves and tendons, deep venous thrombosis, pulmonary embolism and possible need for repeat surgery in the future. Name of Procedure Performed excision of right arm abscess Procedure Details Procedure Details: under the supervision of Dr. Toscano and under adequate anesthesia the patient was placed in a left lateral position. The patient was that prepped and draped. An incision was made and purulent drainage drained from the wound the drainage was cultured and sent. The area was than infiltrated to exice necrotic tissue. The wound was than pulse lavaged and than packed with iodoform packing. Dressings were applied and patient was transferred to recovery. Sponge , needle and blade counts were correct. Condition Good Disposition Still a Patient DANILO COLIN SALES SECRETARY Sep 19, 2024 13:10
[2024-09-19] MEDS ORDERED: MIDAZOLAM HCL 2MG/2ML 2ml VIAL (1mg/ml) IV PRN (13:45)
[2024-09-19] MEDS ORDERED: hydrALAZINE HCL 20 MG/ML VL IV PRN (13:45)
[2024-09-19] MEDS ORDERED: ePHEDrine SULFATE 50 MG/ML AMP IV PRN (13:45)
[2024-09-19] MEDS: ONDANSETRON HCL 4 MG/2 ML VIAL IV ONE (13:45)
[2024-09-19] MEDS ORDERED: MORPHINE SULFATE 4 MG/ML SYR/VIAL IV PRN (13:45)
[2024-09-19] MEDS: HYDROmorphone HCL 2 MG/ML VL/or syr ONE (13:47)
[2024-09-19] MEDS: HYDROmorphone HCL 2 MG/ML VL/or syr IV PRN (13:53)
[2024-09-19] MEDS: BUPIVACAINE W/ EPINEPH 0.5% INJ 50ML MDV IJ ONE (13:56)
[2024-09-19] MEDS: ACETAMINOPHEN IV 100 ML IV ONE (14:09)
[2024-09-19] MEDS: ACETAMINOPHEN IV 1000 MG/100ML (10MG/ML) IV ONE (14:13)
[2024-09-20] VITALS (7 sets, daily range): BP systolic 114–156; BP diastolic 48–73; PULSE 61–79; RESP 18–21; TEMP 97.8–98.6; O2SAT 94–98
[2024-09-20] MEDS: ACETAMINOPHEN 325 MG TAB PO SCH (07:00)
[2024-09-20] MEDS: ENOXAPARIN SOD 40 MG/0.4 ML SYRINGE SC SCH (09:48)
[2024-09-20] MEDS: KETOROLAC TROMETH 30 MG/ML 1ML VIAL IV PRN (09:48)
--- NOTE | 2024-09-20 17:08 | DVHPNRES ---
Progress Note Date Seen: Sep 20, 2024 Resident Creating Document: THAD NICOLE RESIDENT Has the PT tested + for MRSA If YES, has PT been informed?: No Medical Necessity Reason Pt with a Central, PICC or Fol: No Subjective Review of Systems A 74-year-old female, presented to the ED with a week-old insect bite that had become swollen and erythematous despite taking Bactrim, and was diagnosed with right arm cellulitis, receiving IV clindamycin after failing oral antibiotics. Admitted in medsurgery, started on IV antibiotics with further workup and planning of surgical management. Objective vital signs Vital Sign Date Time Temp Pulse Resp B/P (MAP) Pulse Ox O2 Delivery O2 Flow Rate FiO2 09/20/24 16:38 97.8 77 18 145/73 (97) 98 97.8 09/20/24 08:00 Room Air* 0 21 Total Intake and Output 09/19/24 09/19/24 09/20/24 15:00 23:00 07:00 Intake Total 20 ml 550 ml 2210 ml Balance 20 ml 550 ml 2210 ml medications Current Medications Medications Dose Ordered Sig/Franky Route Start Time Stop Time Status Last Admin Dose Admin Acetaminophen/ Hydrocodone Bitart 1 tab Q4HP PRN PO 09/17/24 21:30 09/18/24 18:51 1 TAB Ondansetron HCl 4 mg Q4HP PRN IV 09/17/24 21:30 09/19/24 16:21 4 MG Docusate Sodium 100 mg BIDPRN PRN PO 09/17/24 21:30 Morphine Sulfate 2 mg Q4HPRN PRN IV 09/17/24 21:30 09/20/24 15:55 2 MG Nitroglycerin 0.4 mg Q5MINP PRN SL 09/17/24 21:30 Morphine Sulfate 2 mg Q30M PRN IV 09/17/24 21:30 Vancomycin HCl 0 ml @ 0 mls/hr UD IV 09/17/24 23:15 Quetiapine Fumarate 50 mg HS PO 09/18/24 22:00 09/19/24 21:25 50 MG Ergocalciferol 50,000 unit Q7D PO 09/18/24 10:00 09/18/24 08:38 50,000 UNIT Vancomycin HCl 100 ml @ 200 mls/hr Q12H IV 09/18/24 17:00 09/20/24 15:56 200 MLS/HR Lactated Ringer's 1,000 ml @ 100 mls/hr Q10H IV 09/18/24 11:00 09/20/24 09:51 100 MLS/HR Enoxaparin Sodium 40 mg DAILY SC 09/20/24 10:00 09/20/24 09:48 40 MG Acetaminophen 1,000 mg Q8HR PO 09/20/24 07:00 09/20/24 13:41 1,000 MG Ketorolac Tromethamine 15 mg Q6HPRN PRN IV 09/20/24 07:00 09/25/24 06:59 09/20/24 09:48 15 MG Examination Examination General Appearance: Alert, Oriented X3, Cooperative, mild distress HEENT: Atraumatic, PERRLA, EOMI, Mucous membr. moist/pink Respiratory: Clear to auscultation, Normal air movement Cardiovascular: Regular rate, Normal S1, Normal S2, No murmurs Abdominal: Normal bowel sounds, Soft, No tenderness, No hepatospenomegaly, No masses, Other (BS positive) Extremities: vac on place, low drainage Neuro: Normal gait, Normal speech, Strength at 5/5 X4 ext, Normal tone, Cranial nerves 3-12 NL Psych/Mental Status: Mental status NL, Mood N laboratory and microbiology Laboratory Tests 09/20/24 05:06 09/19/24 09:40 09/18/24 05:22 Test 09/18/24 05:22 Range/Units Serum Glucose 93 74-106 mg/dL Microbiology Date/Time Source Procedure Growth Status 09/19/24 19:13 Nose MRSA Screen - Final Complete 09/17/24 21:43 Blood Blood Culture - Preliminary NO GROWTH AFTER 48 HOURS OF INCUBATION. Resulted Problem List/Assessment/Plan Problem List/Assessment/Plan #Skin and soft tissue infection with likely underlying abscess due to Insect bite #s/p drainage Approximately a week back, insect not visualized. Progressive granulation tissue, local pain, numbness, tingling, referred pain to the proximal shoulder blade and distal arm, forearm and fingers. Noted fever 101 at home with recurrent chills. Worsening of infection despite having oral Bactrim. Surgery will do drainage tomorrow Continue IV AB: vancomycin Wound culture pending blood culture prelim neg Drainage sep 19: An incision was made and purulent drainage drained from the wound the drainage was cultured and sent. The area was than infiltrated to exice necrotic tissue. The wound was than pulse lavaged and than packed with iodoform packing. Dressings were applied and patient was transferred to recovery. Sponge , needle and blade counts were correct. Pt is on VAC therapy right now: surgery in f/u the case Pain managment: tylenol franky, ketorolac and norco PRN #Essential hypertension: Metoprolol succinate 25 mg at home Hold on for now #Past history of brown recluse spider bite #MARY due to VMN: No known baseline, creatinine improving with fluids Case discussed with Dr. Cassidy Code Status: Full Code. Discussion needed total 25 minutes bedside. Plan discussed with: Patient, Other (rn) My Orders My Orders Orders - THAD NICOLE Procedure Category Date Status Time Acetaminophen Tablet PHA 09/20/24 In Process (Tylenol Tablet) 07:00 Ketorolac Injection PHA 09/20/24 In Process (Toradol Injection) 07:00 Dietary Evaluation Review Comments: 1) Advance pt diet when medically feasible to a 2gm Sodium diet 2) Consider SUSANNAH 1 pkt BID for wound 3) Continue current plan of care Expected Outcomes/Goals: 1) Pt diet to advance 2) F/U in2-3 days Date of Service: Sep 20, 2024 Billing Provider: PIEDAD CASSIDY MD Common Visit Codes: [id number] INP/OBS CARE(HIGH) THAD NICOLE Sep 20, 2024 17:07 PIEDAD CASSIDY MD Sep 21, 2024 22:12
[2024-09-21 01:00] VITALS: BP 131/57; PULSE 66; RESP 18; TEMP 98.3; O2SAT 96
[2024-09-21 04:08] LABS: Basophils # (auto) 0 10 ^3/uL (0-0.2); Basophils % (auto) 0.9 % (0.0-2.0); Eosinophils # (auto) 0.1 10 ^3/uL (0-0.8); Eosinophils % (auto) 1.1 % (0.0-7.0); Hematocrit 31.1 % (36.0-46.0); Hemoglobin 10.8 g/dL (12.2-16.2); Lymphocytes # (auto) 2.4 10 ^3/uL (0.4-5.4); Lymphocytes % (auto) 43.6 % (10.0-50.0); Mean Corpuscular Hemoglobin 30.6 pg (28.0-32.0); Mean Corpuscular Hgb Conc. 34.6 g/dL (32.0-36.0); Mean Corpuscular Volume 88.3 fL (80.0-100.0); Monocytes # (auto) 0.3 10 ^3/uL (0-1.3); Monocytes % (auto) 5.9 % (0.0-12.0); Neutrophils # (auto) 2.6 10 ^3/uL (1.6-8.6); Neutrophils % (auto) 48.5 % (37.0-80.0); Platelet Count (auto) 224 10^3/uL (140-450); Red Blood Cells 3.53 10^6/uL (4.0-5.20); Red Cell Distribution Width 13.3 % (11.8-14.3); White Blood Cell 5.4 10^3/uL (4.4-10.8)
[2024-09-21 04:19] LABS: Albumin 3.4 g/dL (3.2-4.8); Alkaline Phosphatase 69 U/L (46-116); Anion Gap 4 (5-15); BUN/Creatinine Ratio 9.9 (10.0-20.0); Blood Urea Nitrogen 11 mg/dL (9-23); Calcium 9.1 mg/dL (8.7-10.4); Carbon Dioxide 30 mmol/L (20-31); Glucose 92 mg/dL (74-106); Potassium 4.3 mmol/L (3.5-5.1); Sodium 143 mmol/L (136-145)
[2024-09-21 04:25] LABS: Alanine Aminotransferase < 9 U/L (7-40); Aspartate Aminotransferase < 8 U/L (13-40); Bilirubin, Total 0.3 mg/dL (0.2-1.0); Chloride 109 mmol/L (98-107); Total Protein 5.3 g/dL (5.7-8.2)
[2024-09-21 05:00] VITALS: BP 133/63; PULSE 64; RESP 20; TEMP 98.5; O2SAT 98
[2024-09-21 09:00] VITALS: BP 142/67; PULSE 66; RESP 19; TEMP 98.1; O2SAT 95
[2024-09-21 13:00] VITALS: BP 141/68; PULSE 68; RESP 18; TEMP 98.3; O2SAT 97
--- NOTE | 2024-09-21 16:00 | DVHDSRES ---
Discharge Summary Date of Admission Resident Creating Document: THAD NICOLE RESIDENT Sep 17, 2024 at 21:27 Date of Discharge: Sep 21, 2024 Admitting Diagnosis Skin and soft tissue infection with likely underlying abscess due to Insect bite Labs/Diagnostic Data: Laboratory Results Test 09/21/24 03:44 09/21/24 03:43 09/18/24 05:40 09/18/24 05:22 White Blood Count 5.4 10^3/uL (4.4-10.8) Red Blood Count 3.53 10^6/uL (4.0-5.20) Hemoglobin 10.8 g/dL (12.2-16.2) Hematocrit 31.1 % (36.0-46.0) Mean Corpuscular Volume 88.3 fL (80.0-100.0) Mean Corpuscular Hemoglobin 30.6 pg (28.0-32.0) Mean Corpuscular Hemoglobin Concent 34.6 g/dL (32.0-36.0) Red Cell Distribution Width 13.3 % (11.8-14.3) Platelet Count 224 10^3/uL (140-450) Mean Platelet Volume 9.4 fL (6.9-10.8) Neutrophils (%) (Auto) 48.5 % (37.0-80.0) Lymphocytes (%) (Auto) 43.6 % (10.0-50.0) Monocytes (%) (Auto) 5.9 % (0.0-12.0) Eosinophils (%) (Auto) 1.1 % (0.0-7.0) Basophils (%) (Auto) 0.9 % (0.0-2.0) Neutrophils # (Auto) 2.6 10 ^3/uL (1.6-8.6) Lymphocytes # (Auto) 2.4 10 ^3/uL (0.4-5.4) Monocytes # (Auto) 0.3 10 ^3/uL (0-1.3) Eosinophils # (Auto) 0.1 10 ^3/uL (0-0.8) Basophils # (Auto) 0 10 ^3/uL (0-0.2) Nucleated Red Blood Cells 0.0 % Vancomycin Level Trough 14.8 ug/mL (5-10) Sodium Level 143 mmol/L (136-145) Potassium Level 4.3 mmol/L (3.5-5.1) Chloride Level 109 mmol/L (98-107) Carbon Dioxide Level 30 mmol/L (20-31) Anion Gap 4 (5-15) Blood Urea Nitrogen 11 mg/dL (9-23) Creatinine 1.11 mg/dL (0.550-1.02) Glomerular Filtration Rate Calc 53 mL/min (>90) BUN/Creatinine Ratio 9.9 (10.0-20.0) Serum Glucose 92 mg/dL (74-106) Calcium Level 9.1 mg/dL (8.7-10.4) Total Bilirubin 0.3 mg/dL (0.2-1.0) Aspartate Amino Transferase (AST) < 8 U/L (13-40) Alanine Aminotransferase (ALT) < 9 U/L (7-40) Alkaline Phosphatase 69 U/L (46-116) Total Protein 5.3 g/dL (5.7-8.2) Albumin 3.4 g/dL (3.2-4.8) Urine Color Light-yellow (Yellow) Urine Clarity Clear (Clear) Urine pH 6.0 (5.0-9.0) Urine Specific Adrian 1.016 (1.001-1.035) Urine Protein Negative (Negative) Urine Ketones 1+ (Negative) Urine Blood Negative /uL (Negative) Urine Nitrite Negative (Negative) Urine Bilirubin Negative (Negative) Urine Urobilinogen Normal mg/dL (Negative) Urine Leukocyte Esterase Negative /uL (Negative) Urine RBC 1 /hpf (0 - 4) Urine WBC None seen /hpf (0 - 5) Urine Squamous Epithelial Cells None seen /hpf (<5) Urine Bacteria None seen /hpf (None Seen) Urine Glucose Normal mg/dL (Normal) Urine Opiates Screen Neg (NEGATIVE) Urine Fentanyl Screen Neg (NEGATIVE) Urine Barbiturates Screen Neg (NEGATIVE) Urine Phencyclidine Screen Neg (NEGATIVE) Urine Amphetamines Screen Neg (NEGATIVE) Urine Benzodiazepines Screen Neg (NEGATIVE) Urine Cocaine Screen Neg (NEGATIVE) Urine Cannabinoids Screen Pos (NEGATIVE) Creatine Kinase 85 U/L (34-145) Vitamin B12 Level 314 pg/mL (211-911) Test 09/17/24 23:43 09/17/24 21:43 Lactic Acid Level 0.9 mmol/L (0.4-2.0) Erythrocyte Sedimentation Rate 16 mm/hr (0-20) D-Dimer, Quantitative 0.47 mg/L FEU (0.0-0.49) Hemoglobin A1c 5.2 % A1C (<5.7) C-Reactive Protein High Sensitivity 0.91 mg/dL (<1.0) Thyroid Stimulating Hormone (TSH) 1.88 uIU/mL (0.55-4.78) Other Laboratory Tests 09/21/24 03:44 09/21/24 03:43 Brief Hx & Hospital Course: A 74-year-old female with a history of essential hypertension and a past brown recluse spider bite presented to the emergency department with a week-old insect bite on her right arm that had become erythematous, swollen, and increasingly painful despite completing a course of oral Bactrim. She was diagnosed with cellulitis and a likely underlying soft tissue infection. Initial evaluation noted fever (101F) and progressive worsening of symptoms, including referred pain to the shoulder blade and fingers. She underwent incision and drainage under anesthesia, with cultures taken from purulent material and necrotic tissue excised. The wound was packed with iodoform and dressed appropriately. Blood cultures remained negative during her hospitalization, and wound cultures are pending final results. The patient was stabilized on IV vancomycin during her admission and transitioned to home health care for wound management, including vacuum-assisted closure (VAC) therapy. She was discharged on oral clindamycin and instructed to follow up closely with her primary care provider and wound care specialists. Detailed discharge instructions emphasized the importance of monitoring for signs of reinfection, maintaining proper wound hygiene, and adhering to the home health regimen for optimal recovery. General Appearance: Alert, Oriented X3, Cooperative, mild distress HEENT: Atraumatic, PERRLA, EOMI, Mucous membr. moist/pink Respiratory: Clear to auscultation, Normal air movement Cardiovascular: Regular rate, Normal S1, Normal S2, No murmurs Abdominal: Normal bowel sounds, Soft, No tenderness, No hepatospenomegaly, No masses, Other (BS positive) Extremities: vac on place, low drainage Neuro: Normal gait, Normal speech, Strength at 5/5 X4 ext, Normal tone, Cranial nerves 3-12 NL Psych/Mental Status: Mental status NL, Mood N Case discussed with Dr Ibanez Consults/Reason for consult surgery for drainage Operations or Procedures Report Details Date: 09/19/24 Preop Diagnosis: right upper arm abscess Postop Diagnosis: right upper arm abscess Surgeon: Dr. Daryn Colin , [employer] Anesthesiologist: Dr. Cosme Anesthesia: Mac Consent: The patient was informed of the risks and benefits of the procedure. These include but are not limited to complications of anesthesia, postoperative infection, incomplete relief of symptoms, recurrence of symptoms, damage to blood vessels, nerves and tendons, deep venous thrombosis, pulmonary embolism and possible need for repeat surgery in the future. Name of Procedure Performed excision of right arm abscess Procedure Details Procedure Details: under the supervision of Dr. Wallace and under adequate anesthesia the patient was placed in a left lateral position. The patient was that prepped and draped. An incision was made and purulent drainage drained from the wound the drainage was cultured and sent. The area was than infiltrated to exice necrotic tissue. The wound was than pulse lavaged and than packed with iodoform packing. Dressings were applied and patient was transferred to recovery. Sponge , needle and blade counts were correct. Condition Good Disposition 2 Still a Patient DANILO COLIN NP Sep 19, 2024 13:10 DICTATED BY:DANILO COLIN NP DICTATED DATE/TIME:09/19/24 1310 ELECTRONICALLY SIGNED BY:DARYN WALLACE MD 09/20/24 1052 ELECTRONICALLY CO-SIGNED BY: Condition at Discharge: Stable Final Diagnosis/Problems List #Skin and soft tissue infection with likely underlying abscess due to Insect bite #s/p drainage #Essential hypertension: #Past history of brown recluse spider bite #MARY due to VMN resolved Discharge Disposition: Home with Health Services Discharge Instruct/Medications Diet: Regular Activity: No Restrictions, As Tolerated Follow Up/Referral: f/u dr wallace 2 weeks and pcp in 7 days Medications: see prescription Discharge Statement: "Patient was advised to return to the ER or call 911 if any headaches, dizziness, shortness of breath, chest pain, abdominal pain, bleeding, fevers, or worsening of medical condition. Patient was counseled about treatment plan, medications, possible side effects, patientverbalized understanding. All questions were answered to the best of my ability. This discharge took greater then 30 minutes in planning, reviewing documentation, counseling the patient, and discussing with other team members." ASSESSMENT ASSESSMENT Assessment right upper arm abscess Date of Service: Sep 21, 2024 Billing Provider: PIEDAD IBANEZ MD Common Visit Codes: [id number] DISCH DAY >30min THAD NICOLE Sep 21, 2024 16:00 PIEDAD IBANEZ MD Sep 22, 2024 23:13
[2024-09-21] MEDS ORDERED: ERGO1CAP23 PO (16:01)
[2024-09-21] MEDS ORDERED: ACET-1882 PO (16:01)
[2024-09-21] MEDS ORDERED: CLIN-188 PO (16:01)
[2024-09-21 17:00] VITALS: BP 157/53; PULSE 72; RESP 17; TEMP 98.7; O2SAT 96
[2024-09-21 21:00] VITALS: BP 141/78; PULSE 64; RESP 18; TEMP 97.6; O2SAT 96
[2024-09-22 01:00] VITALS: BP 140/75; PULSE 64; RESP 18; TEMP 97.8; O2SAT 97
[2024-09-22 05:00] VITALS: BP 148/62; PULSE 66; RESP 18; TEMP 98; O2SAT 96
[2024-09-22 09:00] VITALS: BP 144/68; PULSE 68; RESP 15; TEMP 97.9; O2SAT 96
[2024-09-22 13:00] VITALS: BP 139/73; PULSE 63; RESP 17; TEMP 98; O2SAT 97
[2024-09-22 17:00] VITALS: BP 152/79; PULSE 68; RESP 17; TEMP 97.7; O2SAT 96
--- NOTE | 2024-09-22 17:32 | DVHPNRES ---
Progress Note Date Seen: Sep 22, 2024 Resident Creating Document: THAD NICOLE RESIDENT Has the PT tested + for MRSA If YES, has PT been informed?: No Medical Necessity Reason Pt with a Central, PICC or Fol: No Subjective Review of Systems A 74-year-old female with a history of essential hypertension and a past brown recluse spider bite presented to the emergency department with a week-old insect bite on her right arm that had become erythematous, swollen, and increasingly painful despite completing a course of oral Bactrim. She was diagnosed with cellulitis and a likely underlying soft tissue infection. Initial evaluation noted fever (101F) and progressive worsening of symptoms, including referred pain to the shoulder blade and fingers. She underwent incision and drainage under anesthesia, with cultures taken from purulent material and necrotic tissue excised. The wound was packed with iodoform and dressed appropriately. Blood cultures remained negative during her hospitalization, and wound cultures are pending final results. The patient was stabilized on IV vancomycin during her admission and transitioned to home health care for wound management, including vacuum-assisted closure (VAC) therapy. She was discharged on oral clindamycin and instructed to follow up closely with her primary care provider and wound care specialists. Detailed discharge instructions emphasized the importance of monitoring for signs of reinfection, maintaining proper wound hygiene, and adhering to the home health regimen for optimal recovery. Objective vital signs Vital Sign Date Time Temp Pulse Resp B/P (MAP) Pulse Ox O2 Delivery O2 Flow Rate FiO2 09/22/24 13:22 82 17 131/45 09/22/24 13:00 98.0 97 98.0 09/22/24 08:30 Room Air* 0 21 Total Intake and Output 09/21/24 09/21/24 09/22/24 15:00 23:00 07:00 Intake Total 1700 ml 1400 ml Balance 1700 ml 1400 ml medications Current Medications Medications Dose Ordered Sig/Franky Route Start Time Stop Time Status Last Admin Dose Admin Ondansetron HCl 4 mg Q4HP PRN IV 09/17/24 21:30 09/19/24 16:21 4 MG Docusate Sodium 100 mg BIDPRN PRN PO 09/17/24 21:30 Morphine Sulfate 2 mg Q4HPRN PRN IV 09/17/24 21:30 Hold 09/22/24 12:52 2 MG Nitroglycerin 0.4 mg Q5MINP PRN SL 09/17/24 21:30 Morphine Sulfate 2 mg Q30M PRN IV 09/17/24 21:30 Vancomycin HCl 0 ml @ 0 mls/hr UD IV 09/17/24 23:15 Quetiapine Fumarate 50 mg HS PO 09/18/24 22:00 09/21/24 21:31 50 MG Ergocalciferol 50,000 unit Q7D PO 09/18/24 10:00 09/18/24 08:38 50,000 UNIT Vancomycin HCl 100 ml @ 200 mls/hr Q12H IV 09/18/24 17:00 09/22/24 17:16 200 MLS/HR Lactated Ringer's 1,000 ml @ 100 mls/hr Q10H IV 09/18/24 11:00 09/22/24 12:54 100 MLS/HR Enoxaparin Sodium 40 mg DAILY SC 09/20/24 10:00 09/22/24 09:32 40 MG Acetaminophen 1,000 mg Q8HR PO 09/20/24 07:00 09/22/24 12:45 1,000 MG Ketorolac Tromethamine 15 mg Q6HPRN PRN IV 09/20/24 07:00 09/25/24 06:59 09/22/24 05:04 15 MG Tramadol HCl 50 mg Q6HP PRN PO 09/22/24 15:30 Examination General Appearance: Alert, Oriented X3, Cooperative, mild distress HEENT: Atraumatic, PERRLA, EOMI, Mucous membr. moist/pink Respiratory: Clear to auscultation, Normal air movement Cardiovascular: Regular rate, Normal S1, Normal S2, No murmurs Abdominal: Normal bowel sounds, Soft, No tenderness, No hepatospenomegaly, No masses, Other (BS positive) Extremities: vac on place, low drainage Neuro: Normal gait, Normal speech, Strength at 5/5 X4 ext, Normal tone, Cranial nerves 3-12 NL Psych/Mental Status: Mental status NL, Mood N laboratory and microbiology Laboratory Tests 09/21/24 03:44 09/21/24 03:43 Test 09/21/24 03:43 Range/Units Serum Glucose 92 74-106 mg/dL Microbiology Date/Time Source Procedure Growth Status 09/19/24 19:13 Nose MRSA Screen - Final Complete 09/17/24 21:43 Blood Blood Culture - Preliminary NO GROWTH AFTER 72 HOURS OF INCUBATION. Resulted Problem List/Assessment/Plan Problem List/Assessment/Plan #Skin and soft tissue infection with likely underlying abscess due to Insect bite #s/p drainage Approximately a week back, insect not visualized. Progressive granulation tissue, local pain, numbness, tingling, referred pain to the proximal shoulder blade and distal arm, forearm and fingers. Noted fever 101 at home with recurrent chills. Worsening of infection despite having oral Bactrim. Surgery will do drainage tomorrow Continue IV AB: vancomycin Wound culture pending blood culture prelim neg Drainage sep 19: An incision was made and purulent drainage drained from the wound the drainage was cultured and sent. The area was than infiltrated to exice necrotic tissue. The wound was than pulse lavaged and than packed with iodoform packing. Dressings were applied and patient was transferred to recovery. Sponge , needle and blade counts were correct. Pt is on VAC therapy right now: surgery DC the patient, we are waiting for home vac to DC Pain managment: tramadol, tylenol franky, ketorolac and norco PRN #Essential hypertension: Metoprolol succinate 25 mg at home Hold on for now #Past history of brown recluse spider bite #MARY due to VMN: No known baseline, creatinine improving with fluids Case discussed with Dr. Cassidy Code Status: Full Code. Discussion needed total 25 minutes bedside. Plan discussed with: Patient, Other (rn) My Orders My Orders Orders - THAD NICOLE Procedure Category Date Status Time Tramadol Hcl (Ultram) PHA 09/22/24 In Process 15:30 Dietary Evaluation Review Comments: 1) Advance pt diet when medically feasible to a 2gm Sodium diet 2) Consider SUSANNAH 1 pkt BID for wound 3) Continue current plan of care Expected Outcomes/Goals: 1) Pt diet to advance 2) F/U in2-3 days Date of Service: Sep 22, 2024 Billing Provider: PIEDAD CASSIDY MD Common Visit Codes: [id number] INP/OBS CARE(MOD) THAD NICOLE Sep 22, 2024 17:32 PIEDAD CASSIDY MD Sep 22, 2024 23:14
[2024-09-22] MEDS: traMADol HCL 50 MG TAB PO PRN (17:45)
[2024-09-22] MEDS: MORPHINE SULFATE INJ 2 MG/ml SYRG IV PRN (18:57)
[2024-09-22 21:00] VITALS: BP 135/49; PULSE 70; RESP 16; TEMP 97.8; O2SAT 98
[2024-09-23] VITALS (8 sets, daily range): BP systolic 124–162; BP diastolic 56–76; PULSE 60–75; RESP 18–20; TEMP 97.8–98.9; O2SAT 95–97
--- NOTE | 2024-09-23 08:55 | DVHPNRES ---
Progress Note Date Seen: Sep 23, 2024 Resident Creating Document: THAD NICOLE RESIDENT Has the PT tested + for MRSA If YES, has PT been informed?: No Medical Necessity Reason Pt with a Central, PICC or Fol: No Subjective Review of Systems A 74-year-old female with a history of essential hypertension and a past brown recluse spider bite presented to the emergency department with a week-old insect bite on her right arm that had become erythematous, swollen, and increasingly painful despite completing a course of oral Bactrim. She was diagnosed with cellulitis and a likely underlying soft tissue infection. Initial evaluation noted fever (101F) and progressive worsening of symptoms, including referred pain to the shoulder blade and fingers. She underwent incision and drainage under anesthesia, with cultures taken from purulent material and necrotic tissue excised. The wound was packed with iodoform and dressed appropriately. Blood cultures remained negative during her hospitalization, and wound cultures are pending final results. The patient was stabilized on IV vancomycin during her admission and transitioned to home health care for wound management, including vacuum-assisted closure (VAC) therapy. She was discharged on oral clindamycin ( then added augmentin for GPC in pairs) and instructed to follow up closely with her primary care provider and wound care specialists. Detailed discharge instructions emphasized the importance of monitoring for signs of reinfection, maintaining proper wound hygiene, and adhering to the home health regimen for optimal recovery. Objective vital signs Vital Sign Date Time Temp Pulse Resp B/P (MAP) Pulse Ox O2 Delivery O2 Flow Rate FiO2 09/23/24 05:14 82 16 118/68 09/23/24 05:00 98.2 95 98.2 09/22/24 20:00 Room Air* 0 21 Total Intake and Output 09/22/24 09/22/24 09/23/24 15:00 23:00 07:00 Intake Total 1200 ml 550 ml Output Total 800 ml Balance 1200 ml -250 ml medications Current Medications Medications Dose Ordered Sig/Franky Route Start Time Stop Time Status Last Admin Dose Admin Ondansetron HCl 4 mg Q4HP PRN IV 09/17/24 21:30 09/19/24 16:21 4 MG Docusate Sodium 100 mg BIDPRN PRN PO 09/17/24 21:30 Nitroglycerin 0.4 mg Q5MINP PRN SL 09/17/24 21:30 Morphine Sulfate 2 mg Q30M PRN IV 09/17/24 21:30 Vancomycin HCl 0 ml @ 0 mls/hr UD IV 09/17/24 23:15 Quetiapine Fumarate 50 mg HS PO 09/18/24 22:00 09/22/24 21:39 50 MG Ergocalciferol 50,000 unit Q7D PO 09/18/24 10:00 09/18/24 08:38 50,000 UNIT Vancomycin HCl 100 ml @ 200 mls/hr Q12H IV 09/18/24 17:00 09/23/24 04:45 200 MLS/HR Lactated Ringer's 1,000 ml @ 100 mls/hr Q10H IV 09/18/24 11:00 09/23/24 04:45 100 MLS/HR Enoxaparin Sodium 40 mg DAILY SC 09/20/24 10:00 09/22/24 09:32 40 MG Acetaminophen 1,000 mg Q8HR PO 09/20/24 07:00 09/22/24 12:45 1,000 MG Ketorolac Tromethamine 15 mg Q6HPRN PRN IV 09/20/24 07:00 09/25/24 06:59 09/23/24 08:54 15 MG Tramadol HCl 50 mg Q6HP PRN PO 09/22/24 15:30 09/22/24 17:45 50 MG Morphine Sulfate 2 mg Q4HPRN PRN IV 09/22/24 18:15 09/23/24 04:44 2 MG Examination General Appearance: Alert, Oriented X3, Cooperative, mild distress HEENT: Atraumatic, PERRLA, EOMI, Mucous membr. moist/pink Respiratory: Clear to auscultation, Normal air movement Cardiovascular: Regular rate, Normal S1, Normal S2, No murmurs Abdominal: Normal bowel sounds, Soft, No tenderness, No hepatospenomegaly, No masses, Other (BS positive) Extremities: vac on place, low drainage Neuro: Normal gait, Normal speech, Strength at 5/5 X4 ext, Normal tone, Cranial nerves 3-12 NL Psych/Mental Status: Mental status NL, Mood N laboratory and microbiology Laboratory Tests 09/23/24 06:19 09/21/24 03:44 09/21/24 03:43 Test 09/21/24 03:43 Range/Units Serum Glucose 92 74-106 mg/dL Microbiology Date/Time Source Procedure Growth Status 09/19/24 19:13 Nose MRSA Screen - Final Complete 09/17/24 21:43 Blood Blood Culture - Final NO GROWTH AFTER 5 DAYS OF INCUBATION. Complete Problem List/Assessment/Plan Problem List/Assessment/Plan #Skin and soft tissue infection with likely underlying abscess due to Insect bite #s/p drainage Approximately a week back, insect not visualized. Progressive granulation tissue, local pain, numbness, tingling, referred pain to the proximal shoulder blade and distal arm, forearm and fingers. Noted fever 101 at home with recurrent chills. Worsening of infection despite having oral Bactrim. Surgery will do drainage tomorrow Continue IV AB: vancomycin Wound culture pending blood culture prelim neg Drainage sep 19: An incision was made and purulent drainage drained from the wound the drainage was cultured and sent. The area was than infiltrated to exice necrotic tissue. The wound was than pulse lavaged and than packed with iodoform packing. Dressings were applied and patient was transferred to recovery. Sponge , needle and blade counts were correct. Pt is on VAC therapy right now: surgery DC the patient, we are waiting for home vac to DC Pain managment: tramadol, tylenol franky, ketorolac and norco and morphine PRN #Essential hypertension: Metoprolol succinate 25 mg at home Hold on for now #Past history of brown recluse spider bite #MARY due to VMN: No known baseline, creatinine improving with fluids Case discussed with Dr. Arenas Code Status: Full Code. Discussion needed total 25 minutes bedside. Plan discussed with: Patient, Other (RN) My Orders My Orders Orders - THAD NICOLE Procedure Category Date Status Time Tramadol Hcl (Ultram) PHA 09/22/24 In Process 15:30 Dietary Evaluation Review Comments: 1) Advance pt diet when medically feasible to a 2gm Sodium diet 2) Consider SUSANNAH 1 pkt BID for wound 3) Continue current plan of care Expected Outcomes/Goals: 1) Pt diet to advance 2) F/U in2-3 days Date of Service: Sep 23, 2024 Billing Provider: RONA ARENAS MD Common Visit Codes: [id number] INP/OBS CARE(HIGH) THAD NICOLE Sep 23, 2024 08:55 RONA ARENAS MD Sep 23, 2024 21:19
[2024-09-23] MEDS ORDERED: AUG875T PO (12:38)
[2024-09-23] MEDS: DOCUSATE SOD 100 MG CAP PO PRN (21:46)
[2024-09-24] VITALS (8 sets, daily range): BP systolic 130–173; BP diastolic 58–86; PULSE 60–75; RESP 14–20; TEMP 97.5–98.9; O2SAT 93–97
[2024-09-24 05:34] LABS: Basophils # (auto) 0 10 ^3/uL (0-0.2); Basophils % (auto) 1.1 % (0.0-2.0); Eosinophils # (auto) 0.3 10 ^3/uL (0-0.8); Eosinophils % (auto) 6.8 % (0.0-7.0); Hemoglobin 11.7 g/dL (12.2-16.2); Lymphocytes # (auto) 1.6 10 ^3/uL (0.4-5.4); Lymphocytes % (auto) 34.5 % (10.0-50.0); Mean Corpuscular Hemoglobin 30.2 pg (28.0-32.0); Mean Corpuscular Hgb Conc. 34.4 g/dL (32.0-36.0); Mean Corpuscular Volume 87.9 fL (80.0-100.0); Monocytes # (auto) 0.2 10 ^3/uL (0-1.3); Monocytes % (auto) 5.4 % (0.0-12.0); Neutrophils # (auto) 2.4 10 ^3/uL (1.6-8.6); Neutrophils % (auto) 52.2 % (37.0-80.0); Nucleated Red Blood Cells % 0.1 %; Platelet Count (auto) 232 10^3/uL (140-450); Red Blood Cells 3.86 10^6/uL (4.0-5.20); Red Cell Distribution Width 13.6 % (11.8-14.3); White Blood Cell 4.5 10^3/uL (4.4-10.8)
[2024-09-24] MEDS ORDERED: IBU600T PO (07:52)
[2024-09-24] MEDS ORDERED: IBUPROFEN 600 MG TAB PO PRN (08:00)
[2024-09-24] MEDS: METOPROLOL SUCCINATE XL 50 MG TAB PO SCH (10:02)
--- NOTE | 2024-09-24 13:07 | DVHPNRES ---
Progress Note Date Seen: Sep 24, 2024 Resident Creating Document: SHAWNA BARTON RESIDENT Has the PT tested + for MRSA If YES, has PT been informed?: No Medical Necessity Reason Pt with a Central, PICC or Fol: No Subjective Review of Systems Kinsey Tang is a 74-year-old female patient who presents to the ED with chief complaint of right arm swelling, redness, progressive pain and fever, which did not respond to p.o. antibiotic medication (Bactrim). She reports one week back to have been bitten by a spider, and she does have past medical history of a previous brown recluse spider bite. Denies palpitation, syncope, chest pain, dyspnea, abdominal pain, nausea, vomiting, diarrhea, constipation, dysuria, bleeding, sick contacts and motor or sensory deficits. Past medical history: Hypertension, past brown recluse spider bite, vitamin-D deficiency, chronic low back pain, osteoarthritis, insomnia. Surgical history: Hysterectomy, lower back pain surgery Family history: Noncontributory Social history: Lives with family in [place]. Ex-smoker (60 pack-year history of smoking), quit seven years ago. Occasionally drinks. Denies current tobacco, alcohol and other drug abuse. Allergies: Prochlorperazine Home medication: Metoprolol, quetiapine and vitamin-D Patient seen and examined at bedside. Patient persists with pain in surgical site. Continuous connected with VAC system, awaiting home VAC for safe discharge. Objective vital signs Vital Sign Date Time Temp Pulse Resp B/P (MAP) Pulse Ox O2 Delivery O2 Flow Rate FiO2 09/24/24 11:29 76 16 137/74 09/24/24 09:00 98.1 95 98.1 09/24/24 08:15 Room Air* 0 21 Total Intake and Output 09/23/24 09/23/24 09/24/24 15:00 23:00 07:00 Intake Total 240 ml 1200 ml 600 ml Output Total 650 ml Balance 240 ml 550 ml 600 ml medications Current Medications Medications Dose Ordered Sig/Franky Route Start Time Stop Time Status Last Admin Dose Admin Ondansetron HCl 4 mg Q4HP PRN IV 09/17/24 21:30 09/19/24 16:21 4 MG Docusate Sodium 100 mg BIDPRN PRN PO 09/17/24 21:30 09/23/24 21:46 100 MG Vancomycin HCl 0 ml @ 0 mls/hr UD IV 09/17/24 23:15 Quetiapine Fumarate 50 mg HS PO 09/18/24 22:00 09/23/24 21:41 50 MG Ergocalciferol 50,000 unit Q7D PO 09/18/24 10:00 09/18/24 08:38 50,000 UNIT Vancomycin HCl 100 ml @ 200 mls/hr Q12H IV 09/18/24 17:00 09/24/24 04:58 200 MLS/HR Enoxaparin Sodium 40 mg DAILY SC 09/20/24 10:00 09/24/24 10:05 40 MG Acetaminophen 1,000 mg Q8HR PO 09/20/24 07:00 09/24/24 04:58 1,000 MG Tramadol HCl 50 mg Q6HP PRN PO 09/22/24 15:30 Hold 09/22/24 17:45 50 MG Morphine Sulfate 2 mg Q4HPRN PRN IV 09/22/24 18:15 09/24/24 11:29 2 MG Ibuprofen 600 mg Q8HP PRN PO 09/24/24 08:00 Metoprolol Succinate 25 mg DAILY PO 09/24/24 10:00 09/24/24 10:02 25 MG Examination Patient lying in bed, in no acute distress General: Lucid, afebrile, mucosae are moist Cardiovascular: Normal S1 and S2. No murmurs, gallops or rubs Respiratory: Normal ventilation mechanics. Clear lung sounds on auscultation Abdomen: Soft, nontender, no organomegaly, normal bowel sounds MSK/skin: Mobilizes 4 limbs. Skin is dry and warm. VAC system placed in posterior right arm, low suction, scares serous discharge Neurological: Oriented in 3 spheres. No motor no sensitive deficits. Pupils are isocoric and reactive laboratory and microbiology Laboratory Tests 09/24/24 05:08 09/21/24 03:43 Test 09/21/24 03:43 Range/Units Serum Glucose 92 74-106 mg/dL Microbiology Date/Time Source Procedure Growth Status 09/19/24 19:13 Nose MRSA Screen - Final Complete 09/17/24 21:43 Blood Blood Culture - Final NO GROWTH AFTER 5 DAYS OF INCUBATION. Complete Problem List/Assessment/Plan Problem List/Assessment/Plan Right arm cellulitis and abscess secondary to Insect bite - status post incision and drainage, on VAC system Completed soft tissue ultrasound of right arm which evidence abscess grounds/maintenance specialist on board: Completed incision and drainage on 09/19/2024. Surgical culture negative for growth (observed Gram-positive cocci in pairs). Currently is on VAC system, pending home health to obtain home VAC system Currently under empiric IV antibiotic (Vancomycin) Blood and surgical culture negative at the moment. MARY hemodynamically mediated No known baseline, creatinine improving with fluids Have discontinued Ketoralac. Avoid nephrotoxic medication Essential hypertension Metoprolol succinate 25 mg at home. 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 Arenas, patient and nurses: Patient medically cleared to be discharged, awaiting home VAC system (appreciate forensic social worker input). Planning to continue p.o. medication with clindamycin and Augmentin to complete 14 days. Plan discussed with: Patient, Other (Nurses) My Orders My Orders Orders - SHAWNA BARTON RESIDENT Procedure Category Date Status Time Ibuprofen Tablet PHA 09/24/24 In Process (Motrin Tablet) 08:00 Metoprolol Xl PHA 09/24/24 In Process Succinate (Toprol Xl) 10:00 Dietary Evaluation Review Comments: 1) Advance pt diet when medically feasible to a 2gm Sodium diet 2) Consider SUSANNAH 1 pkt BID for wound 3) Continue current plan of care Expected Outcomes/Goals: 1) Pt diet to advance 2) F/U in2-3 days Date of Service: Sep 24, 2024 Billing Provider: RONA ARENAS MD Common Visit Codes: [id number] INP/OBS CARE(HIGH) SHAWNA BARTON RESIDENT Sep 24, 2024 13:07 RONA ARENAS MD Sep 24, 2024 23:01
[2024-09-24] MEDS: ACETAMINOPHEN 500 MG TAB PO SCH (14:18)
[2024-09-25] VITALS (7 sets, daily range): BP systolic 128–165; BP diastolic 48–71; PULSE 61–76; RESP 16–18; TEMP 97.6–98.7; O2SAT 95–97
[2024-09-25 06:15] LABS: Basophils # (auto) 0 10 ^3/uL (0-0.2); Basophils % (auto) 0.8 % (0.0-2.0); Eosinophils # (auto) 0.3 10 ^3/uL (0-0.8); Eosinophils % (auto) 5.4 % (0.0-7.0); Hematocrit 31.3 % (36.0-46.0); Hemoglobin 11.1 g/dL (12.2-16.2); Lymphocytes # (auto) 1.6 10 ^3/uL (0.4-5.4); Lymphocytes % (auto) 30.1 % (10.0-50.0); Mean Corpuscular Hgb Conc. 35.4 g/dL (32.0-36.0); Mean Corpuscular Volume 87.7 fL (80.0-100.0); Monocytes # (auto) 0.3 10 ^3/uL (0-1.3); Monocytes % (auto) 5.1 % (0.0-12.0); Neutrophils # (auto) 3.1 10 ^3/uL (1.6-8.6); Neutrophils % (auto) 58.6 % (37.0-80.0); Platelet Count (auto) 208 10^3/uL (140-450); Red Blood Cells 3.57 10^6/uL (4.0-5.20); Red Cell Distribution Width 13.6 % (11.8-14.3); White Blood Cell 5.3 10^3/uL (4.4-10.8)
[2024-09-25 06:29] LABS: Anion Gap 8 (5-15); Carbon Dioxide 27 mmol/L (20-31); Chloride 105 mmol/L (98-107); Potassium 3.8 mmol/L (3.5-5.1); Sodium 140 mmol/L (136-145)
[2024-09-25 06:35] LABS: BUN/Creatinine Ratio 14.8 (10.0-20.0); Blood Urea Nitrogen 13 mg/dL (9-23)
[2024-09-25 06:36] LABS: Glucose 121 mg/dL (74-106)
--- NOTE | 2024-09-25 14:13 | DVHPNRES ---
Progress Note Date Seen: Sep 25, 2024 Resident Creating Document: THAD NICOLE RESIDENT Has the PT tested + for MRSA If YES, has PT been informed?: No Medical Necessity Reason Pt with a Central, PICC or Fol: No Subjective Review of Systems A 74-year-old female with a history of essential hypertension and a past brown recluse spider bite presented to the emergency department with a week-old insect bite on her right arm that had become erythematous, swollen, and increasingly painful despite completing a course of oral Bactrim. She was diagnosed with cellulitis and a likely underlying soft tissue infection. Initial evaluation noted fever (101F) and progressive worsening of symptoms, including referred pain to the shoulder blade and fingers. She underwent incision and drainage under anesthesia, with cultures taken from purulent material and necrotic tissue excised. The wound was packed with iodoform and dressed appropriately. Blood cultures remained negative during her hospitalization, and wound cultures are pending final results. The patient was stabilized on IV vancomycin during her admission and transitioned to home health care for wound management, including vacuum-assisted closure (VAC) therapy. She was discharged on oral clindamycin ( then added augmentin for GPC in pairs) and instructed to follow up closely with her primary care provider and wound care specialists. Detailed discharge instructions emphasized the importance of monitoring for signs of reinfection, maintaining proper wound hygiene, and adhering to the home health regimen for optimal recovery. Objective vital signs Vital Sign Date Time Temp Pulse Resp B/P (MAP) Pulse Ox O2 Delivery O2 Flow Rate FiO2 09/25/24 13:00 98.7 67 17 141/48 (79) 96 98.7 09/25/24 08:15 Room Air* 0 21 Total Intake and Output 09/24/24 09/24/24 09/25/24 15:00 23:00 07:00 Intake Total 100 ml 340 ml 800 ml Output Total 1300 ml 500 ml Balance 100 ml -960 ml 300 ml medications Current Medications Medications Dose Ordered Sig/Franky Route Start Time Stop Time Status Last Admin Dose Admin Ondansetron HCl 4 mg Q4HP PRN IV 09/17/24 21:30 09/19/24 16:21 4 MG Docusate Sodium 100 mg BIDPRN PRN PO 09/17/24 21:30 09/23/24 21:46 100 MG Vancomycin HCl 0 ml @ 0 mls/hr UD IV 09/17/24 23:15 Quetiapine Fumarate 50 mg HS PO 09/18/24 22:00 09/24/24 21:22 50 MG Ergocalciferol 50,000 unit Q7D PO 09/18/24 10:00 09/25/24 09:41 50,000 UNIT Vancomycin HCl 100 ml @ 200 mls/hr Q12H IV 09/18/24 17:00 09/25/24 05:04 200 MLS/HR Enoxaparin Sodium 40 mg DAILY SC 09/20/24 10:00 09/25/24 09:41 40 MG Tramadol HCl 50 mg Q6HP PRN PO 09/22/24 15:30 Hold 09/22/24 17:45 50 MG Morphine Sulfate 2 mg Q4HPRN PRN IV 09/22/24 18:15 09/25/24 09:44 2 MG Ibuprofen 600 mg Q8HP PRN PO 09/24/24 08:00 Metoprolol Succinate 25 mg DAILY PO 09/24/24 10:00 09/25/24 09:40 25 MG Acetaminophen 1,000 mg Q8H PO 09/24/24 14:00 09/25/24 13:29 1,000 MG Examination General Appearance: Alert, Oriented X3, Cooperative, mild distress HEENT: Atraumatic, PERRLA, EOMI, Mucous membr. moist/pink Respiratory: Clear to auscultation, Normal air movement Cardiovascular: Regular rate, Normal S1, Normal S2, No murmurs Abdominal: Normal bowel sounds, Soft, No tenderness, No hepatospenomegaly, No masses, Other (BS positive) Extremities: vac on place, low drainage Neuro: Normal gait, Normal speech, Strength at 5/5 X4 ext, Normal tone, Cranial nerves 3-12 NL Psych/Mental Status: Mental status NL, Mood N laboratory and microbiology Laboratory Tests 09/25/24 05:39 Test 09/25/24 05:39 Range/Units Serum Glucose 121 H 74-106 mg/dL Microbiology Date/Time Source Procedure Growth Status 09/19/24 19:13 Nose MRSA Screen - Final Complete 09/17/24 21:43 Blood Blood Culture - Final NO GROWTH AFTER 5 DAYS OF INCUBATION. Complete Problem List/Assessment/Plan Problem List/Assessment/Plan #Skin and soft tissue infection with likely underlying abscess due to Insect bite #s/p drainage Approximately a week back, insect not visualized. Progressive granulation tissue, local pain, numbness, tingling, referred pain to the proximal shoulder blade and distal arm, forearm and fingers. Noted fever 101 at home with recurrent chills. Continue oral AB Wound culture negative blood culture negative Drainage sep 19: An incision was made and purulent drainage drained from the wound the drainage was cultured and sent. The area was than infiltrated to exice necrotic tissue. The wound was than pulse lavaged and than packed with iodoform packing. Dressings were applied and patient was transferred to recovery. Sponge , needle and blade counts were correct. Pt is on VAC therapy right now: surgery DC the patient, we are waiting for home vac to DC Pain managment: tramadol, tylenol franky, ketorolac and norco and morphine PRN #Essential hypertension: Metoprolol succinate 25 mg at home Hold on for now #Past history of brown recluse spider bite #MARY due to VMN resolved No known baseline, creatinine improving with fluids Case discussed with Dr. Hightower Code Status: Full Code. Discussion needed total 25 minutes bedside. Plan discussed with: Patient, Other (rn) Dietary Evaluation Review Comments: 1) Advance pt diet when medically feasible to a 2gm Sodium diet 2) Consider SUSANNAH 1 pkt BID for wound 3) Continue current plan of care Expected Outcomes/Goals: 1) Pt diet to advance 2) F/U in2-3 days THAD NICOLE RESIDENT Sep 25, 2024 14:13
[2024-09-26] VITALS (7 sets, daily range): BP systolic 117–140; BP diastolic 45–71; PULSE 57–67; RESP 18–20; TEMP 97.8–98.6; O2SAT 94–100
[2024-09-26 07:08] LABS: Basophils # (auto) 0 10 ^3/uL (0-0.2); Basophils % (auto) 0.8 % (0.0-2.0); Eosinophils # (auto) 0.2 10 ^3/uL (0-0.8); Eosinophils % (auto) 4.8 % (0.0-7.0); Hemoglobin 11.2 g/dL (12.2-16.2); Lymphocytes # (auto) 1.3 10 ^3/uL (0.4-5.4); Lymphocytes % (auto) 32.2 % (10.0-50.0); Mean Corpuscular Hgb Conc. 35.1 g/dL (32.0-36.0); Mean Corpuscular Volume 88.3 fL (80.0-100.0); Monocytes # (auto) 0.3 10 ^3/uL (0-1.3); Monocytes % (auto) 7.1 % (0.0-12.0); Neutrophils # (auto) 2.2 10 ^3/uL (1.6-8.6); Neutrophils % (auto) 55.1 % (37.0-80.0); Nucleated Red Blood Cells % 0.2 %; Platelet Count (auto) 202 10^3/uL (140-450); Red Blood Cells 3.63 10^6/uL (4.0-5.20); White Blood Cell 4.1 10^3/uL (4.4-10.8)
--- NOTE | 2024-09-26 12:58 | DVHPNRES ---
Progress Note Date Seen: Sep 26, 2024 Resident Creating Document: THAD NICOLE RESIDENT Has the PT tested + for MRSA If YES, has PT been informed?: No Medical Necessity Reason Pt with a Central, PICC or Fol: No Subjective Review of Systems A 74-year-old female with a history of essential hypertension and a past brown recluse spider bite presented to the emergency department with a week-old insect bite on her right arm that had become erythematous, swollen, and increasingly painful despite completing a course of oral Bactrim. She was diagnosed with cellulitis and a likely underlying soft tissue infection. Initial evaluation noted fever (101F) and progressive worsening of symptoms, including referred pain to the shoulder blade and fingers. She underwent incision and drainage under anesthesia, with cultures taken from purulent material and necrotic tissue excised. The wound was packed with iodoform and dressed appropriately. Blood cultures remained negative during her hospitalization, and wound cultures are pending final results. The patient was stabilized on IV vancomycin during her admission and transitioned to home health care for wound management, including vacuum-assisted closure (VAC) therapy. She was discharged on oral clindamycin ( then added augmentin for GPC in pairs) and instructed to follow up closely with her primary care provider and wound care specialists. Detailed discharge instructions emphasized the importance of monitoring for signs of reinfection, maintaining proper wound hygiene, and adhering to the home health regimen for optimal recovery Objective vital signs Vital Sign Date Time Temp Pulse Resp B/P (MAP) Pulse Ox O2 Delivery O2 Flow Rate FiO2 09/26/24 09:41 59 16 122/43 09/26/24 09:00 97.9 96 97.9 09/26/24 08:00 Room Air* 0 21 Total Intake and Output 09/25/24 09/25/24 09/26/24 15:00 23:00 07:00 Intake Total 450 ml 600 ml Output Total 500 ml Balance 450 ml 100 ml medications Current Medications Medications Dose Ordered Sig/Franky Route Start Time Stop Time Status Last Admin Dose Admin Ondansetron HCl 4 mg Q4HP PRN IV 09/17/24 21:30 09/19/24 16:21 4 MG Docusate Sodium 100 mg BIDPRN PRN PO 09/17/24 21:30 09/26/24 09:07 100 MG Vancomycin HCl 0 ml @ 0 mls/hr UD IV 09/17/24 23:15 Quetiapine Fumarate 50 mg HS PO 09/18/24 22:00 09/25/24 21:41 50 MG Ergocalciferol 50,000 unit Q7D PO 09/18/24 10:00 09/25/24 09:41 50,000 UNIT Vancomycin HCl 100 ml @ 200 mls/hr Q12H IV 09/18/24 17:00 09/26/24 04:53 200 MLS/HR Enoxaparin Sodium 40 mg DAILY SC 09/20/24 10:00 09/26/24 09:09 40 MG Tramadol HCl 50 mg Q6HP PRN PO 09/22/24 15:30 Hold 09/22/24 17:45 50 MG Morphine Sulfate 2 mg Q4HPRN PRN IV 09/22/24 18:15 09/26/24 09:11 2 MG Ibuprofen 600 mg Q8HP PRN PO 09/24/24 08:00 Metoprolol Succinate 25 mg DAILY PO 09/24/24 10:00 09/25/24 09:40 25 MG Acetaminophen 1,000 mg Q8H PO 09/24/24 14:00 09/26/24 05:05 1,000 MG Examination General Appearance: Alert, Oriented X3, Cooperative, mild distress HEENT: Atraumatic, PERRLA, EOMI, Mucous membr. moist/pink Respiratory: Clear to auscultation, Normal air movement Cardiovascular: Regular rate, Normal S1, Normal S2, No murmurs Abdominal: Normal bowel sounds, Soft, No tenderness, No hepatospenomegaly, No masses, Other (BS positive) Extremities: vac on place, low drainage Neuro: Normal gait, Normal speech, Strength at 5/5 X4 ext, Normal tone, Cranial nerves 3-12 NL Psych/Mental Status: Mental status NL, Mood N laboratory and microbiology Laboratory Tests 09/26/24 06:39 09/25/24 05:39 Test 09/25/24 05:39 Range/Units Serum Glucose 121 H 74-106 mg/dL Microbiology Date/Time Source Procedure Growth Status 09/19/24 19:13 Nose MRSA Screen - Final Complete 09/17/24 21:43 Blood Blood Culture - Final NO GROWTH AFTER 5 DAYS OF INCUBATION. Complete Problem List/Assessment/Plan Problem List/Assessment/Plan #Skin and soft tissue infection with likely underlying abscess due to Insect bite #s/p drainage Approximately a week back, insect not visualized. Progressive granulation tissue, local pain, numbness, tingling, referred pain to the proximal shoulder blade and distal arm, forearm and fingers. Noted fever 101 at home with recurrent chills. Continue oral AB Wound culture negative blood culture negative Drainage sep 19: An incision was made and purulent drainage drained from the wound the drainage was cultured and sent. The area was than infiltrated to exice necrotic tissue. The wound was than pulse lavaged and than packed with iodoform packing. Dressings were applied and patient was transferred to recovery. Sponge , needle and blade counts were correct. Pt is on VAC therapy right now: surgery DC the patient, we are waiting for home vac to DC Pain managment: tramadol, tylenol franky, ketorolac and norco and morphine PRN #Essential hypertension: Metoprolol succinate 25 mg at home Hold on for now Low distolic BPs: fluids for hypotension #Past history of brown recluse spider bite #MARY due to VMN resolved No known baseline, creatinine improving with fluids Case discussed with Dr. Hightower Code Status: Full Code. Discussion needed total 25 minutes bedside. Plan discussed with: Patient, Other (rn) Dietary Evaluation Review Comments: 1) Advance pt diet when medically feasible to a 2gm Sodium diet 2) Consider SUSANNAH 1 pkt BID for wound 3) Continue current plan of care Expected Outcomes/Goals: 1) Pt diet to advance 2) F/U in2-3 days THAD NICOLE RESIDENT Sep 26, 2024 12:58
[2024-09-26] MEDS: SODIUM CHLORIDE 0.9% 500 ML IV ONE (15:24)
[2024-09-27] VITALS (7 sets, daily range): BP systolic 110–135; BP diastolic 42–62; PULSE 60–66; RESP 17–18; TEMP 97.7–98.4; O2SAT 95–98
--- NOTE | 2024-09-27 16:03 | DVHPNRES ---
Progress Note Date Seen: Sep 27, 2024 Resident Creating Document: THAD NICOLE RESIDENT Has the PT tested + for MRSA If YES, has PT been informed?: No Medical Necessity Reason Pt with a Central, PICC or Fol: No Subjective Review of Systems A 74-year-old female with a history of essential hypertension and a past brown recluse spider bite presented to the emergency department with a week-old insect bite on her right arm that had become erythematous, swollen, and increasingly painful despite completing a course of oral Bactrim. She was diagnosed with cellulitis and a likely underlying soft tissue infection. Initial evaluation noted fever (101F) and progressive worsening of symptoms, including referred pain to the shoulder blade and fingers. She underwent incision and drainage under anesthesia, with cultures taken from purulent material and necrotic tissue excised. The wound was packed with iodoform and dressed appropriately. Blood cultures remained negative during her hospitalization, and wound cultures are pending final results. The patient was stabilized on IV vancomycin during her admission and transitioned to home health care for wound management, including vacuum-assisted closure (VAC) therapy. She was discharged on oral clindamycin ( then added augmentin for GPC in pairs) and instructed to follow up closely with her primary care provider and wound care specialists. Detailed discharge instructions emphasized the importance of monitoring for signs of reinfection, maintaining proper wound hygiene, and adhering to the home health regimen for optimal recovery Objective vital signs Vital Sign Date Time Temp Pulse Resp B/P (MAP) Pulse Ox O2 Delivery O2 Flow Rate FiO2 09/27/24 15:42 66 18 123/55 09/27/24 13:00 98.4 95 98.4 09/27/24 08:00 Room Air* 0 21 Total Intake and Output 09/26/24 09/26/24 09/27/24 15:00 23:00 07:00 Intake Total 1100 ml 300 ml Output Total 3 ml Balance 1100 ml 297 ml medications Current Medications Medications Dose Ordered Sig/Franky Route Start Time Stop Time Status Last Admin Dose Admin Ondansetron HCl 4 mg Q4HP PRN IV 09/17/24 21:30 09/19/24 16:21 4 MG Docusate Sodium 100 mg BIDPRN PRN PO 09/17/24 21:30 09/26/24 09:07 100 MG Vancomycin HCl 0 ml @ 0 mls/hr UD IV 09/17/24 23:15 Quetiapine Fumarate 50 mg HS PO 09/18/24 22:00 09/26/24 20:11 50 MG Ergocalciferol 50,000 unit Q7D PO 09/18/24 10:00 09/25/24 09:41 50,000 UNIT Vancomycin HCl 100 ml @ 200 mls/hr Q12H IV 09/18/24 17:00 09/27/24 04:55 200 MLS/HR Enoxaparin Sodium 40 mg DAILY SC 09/20/24 10:00 09/27/24 11:14 40 MG Tramadol HCl 50 mg Q6HP PRN PO 09/22/24 15:30 Hold 09/22/24 17:45 50 MG Morphine Sulfate 2 mg Q4HPRN PRN IV 09/22/24 18:15 09/27/24 15:42 2 MG Ibuprofen 600 mg Q8HP PRN PO 09/24/24 08:00 Metoprolol Succinate 25 mg DAILY PO 09/24/24 10:00 09/27/24 11:10 25 MG Acetaminophen 1,000 mg Q8H PO 09/24/24 14:00 09/27/24 15:34 1,000 MG Examination General Appearance: Alert, Oriented X3, Cooperative, mild distress HEENT: Atraumatic, PERRLA, EOMI, Mucous membr. moist/pink Respiratory: Clear to auscultation, Normal air movement Cardiovascular: Regular rate, Normal S1, Normal S2, No murmurs Abdominal: Normal bowel sounds, Soft, No tenderness, No hepatospenomegaly, No masses, Other (BS positive) Extremities: vac on place, low drainage Neuro: Normal gait, Normal speech, Strength at 5/5 X4 ext, Normal tone, Cranial nerves 3-12 NL Psych/Mental Status: Mental status NL, Mood N laboratory and microbiology Laboratory Tests 09/26/24 06:39 09/25/24 05:39 Test 09/25/24 05:39 Range/Units Serum Glucose 121 H 74-106 mg/dL Microbiology Date/Time Source Procedure Growth Status 09/19/24 19:13 Nose MRSA Screen - Final Complete 09/17/24 21:43 Blood Blood Culture - Final NO GROWTH AFTER 5 DAYS OF INCUBATION. Complete Problem List/Assessment/Plan Problem List/Assessment/Plan #Skin and soft tissue infection with likely underlying abscess due to Insect bite #s/p drainage Approximately a week back, insect not visualized. Progressive granulation tissue, local pain, numbness, tingling, referred pain to the proximal shoulder blade and distal arm, forearm and fingers. Noted fever 101 at home with recurrent chills. Continue oral AB Wound culture negative blood culture negative Drainage sep 19: An incision was made and purulent drainage drained from the wound the drainage was cultured and sent. The area was than infiltrated to exice necrotic tissue. The wound was than pulse lavaged and than packed with iodoform packing. Dressings were applied and patient was transferred to recovery. Sponge , needle and blade counts were correct. Pt is on VAC therapy right now: surgery DC the patient, we are waiting for home vac, patient is being discharged with temporary wound vac Pain managment: tramadol, tylenol franky, ketorolac and norco and morphine PRN #Essential hypertension: Metoprolol succinate 25 mg at home Hold on for now Low distolic BPs: fluids for hypotension #Past history of brown recluse spider bite #MARY due to VMN resolved No known baseline, creatinine improving with fluids Case discussed with Dr. Hightower Code Status: Full Code. Discussion needed total 25 minutes bedside. Plan discussed with: Patient, Other Dietary Evaluation Review Comments: 1) Advance pt diet when medically feasible to a 2gm Sodium diet 2) Consider SUSANNAH 1 pkt BID for wound 3) Continue current plan of care Expected Outcomes/Goals: 1) Pt diet to advance 2) F/U in2-3 days THAD NICOLE RESIDENT Sep 27, 2024 16:03
[2024-09-27] MEDS: MORPHINE SULFATE INJ 2 MG/ml SYRG IV ONE (19:00)
[2024-09-28] MEDS ORDERED: TRAM-626 PO (10:46)
--- NOTE | 2024-09-28 16:30 | CODING ---
Date of Service: Sep 19, 2024 Billing Provider: PIEDAD CASSIDY MD Common Visit Codes: [id number] INP/OBS CARE(HIGH) PIEDAD CASSIDY MD Sep 28, 2024 16:30
== END 2024-09-27 20:05 | disposition home or self-care (01) | DRG 570 ==
LOC: ER 16:20 → OVERFLOW 21:27 → CENTRAL 09-19 03:16
PROVIDERS: ADMIT Internal Medicine Geriatric Medicine; ATTEND Emergency Medicine
PROC: 0X980ZZ Drainage of Right Upper Arm, Open Approach (ICD-10-PCS; 2024-09-19)
PROC: 0JBD0ZZ Excision of Right Upper Arm Subcutaneous Tissue and Fascia, Open Approach (ICD-10-PCS; principal; 2024-09-19 12:31)
DX: L02.413 Cutaneous abscess of right upper limb (principal); N17.0 Acute kidney failure with tubular necrosis; L03.115 Cellulitis of right lower limb; M79.7 Fibromyalgia; L03.113 Cellulitis of right upper limb; W57.XXXA Bitten or stung by nonvenomous insect and other nonvenomous arthropods, initial encounter; K74.60 Unspecified cirrhosis of liver; J45.909 Unspecified asthma, uncomplicated; I10 Essential (primary) hypertension; M54.50 Low back pain, unspecified; G89.29 Other chronic pain; G47.00 Insomnia, unspecified; E55.9 Vitamin D deficiency, unspecified; D64.9 Anemia, unspecified; Z87.891 Personal history of nicotine dependence; Y93.89 Activity, other specified; Y92.89 Other specified places as the place of occurrence of the external cause; Y99.8 Other external cause status; Z88.8 Allergy status to other drugs, medicaments and biological substances
CPT/HCPCS: 36415; 80048; 80053; 80202; 80307; 81001; 82550; 82565; 82607; 83036; 83605; 84443; 85025; 85379; 85652; 86141; 87040; 87070; 87075; 87081; 87205; 93306; 93971; G0378; J0131; J1100; J1885; J2250; J2405; J2704; J3490